=== PATIENT | male | born 1990 | race Caucasian/White ===

== ENCOUNTER 2017-08-29 01:21 | Emergency (ER) | payer SELFPAY ==
[~2017-08-29] VITALS: Ht 175.3 cm; Wt 65.0 kg
[~2017-08-29 01:21] MED LIST: METR-1 PO
[2017-08-29 01:23] VITALS: BP 145/103; PULSE 116; RESP 16; TEMP 98.7; O2SAT 96
[2017-08-29 01:55] VITALS: BP 124/83; PULSE 105; RESP 20; O2SAT 98
[2017-08-29] MEDS ORDERED: LISI-515 PO (01:55)
--- NOTE | 2017-08-29 02:09 | PD ---
HPI Chief Complaint: Alcohol/Drug Intoxication Time Seen by Provider: 01:54 Travel History International Travel<30 days: No Contact w/Intl Traveler<30days: No Traveled to known affect area: No History of Present Illness HPI 26-year-old white male IV drug abuser presents to emergency department requesting detox. The patient just left detox one week ago and had been in a treatment facility for the past 6 weeks. He has relapsed using IV heroin and smoking crack cocaine. Patient denies any suicidal or homicidal ideation. He denies any acute medical complaints. He is requesting detox. [facility] Past Medical History Narrative Medical Polysubstance abuse Hypertension: Yes Immunizations Current: Yes Tetanus Vaccination: Unknown Influenza Vaccination: No Past Surgical History Surgical History: No Previous Surgery Social History Alcohol Use: No Tobacco Use: Yes (ppd) Substance Use: Yes (marijuana, crack, heroin) Allergies-Medications (Allergen,Severity, Reaction): Coded Allergies: No Known Allergies (Verified Adverse Reaction, Unknown, 08/29/17) Reported Meds & Prescriptions Reported Meds & Active Scripts Active Reported Lisinopril 20 Mg Tab 20 Mg PO DAILY Review of Systems General / Constitutional: No: Fever Eyes: No: Visual changes HENT: No: Headaches Cardiovascular: No: Chest Pain or Discomfort Respiratory: No: Shortness of Breath Gastrointestinal: No: Abdominal Pain Genitourinary: No: Dysuria Musculoskeletal: No: Pain Skin: No Rash Neurologic: No: Weakness Psychiatric: No: Depression Endocrine: No: Polydipsia Hematologic/Lymphatic: No: Easy Bruising Physical Exam Narrative GENERAL: Well-nourished, well-developed patient. SKIN: Warm and dry. HEAD: Normocephalic and atraumatic. EYES: No scleral icterus. No injection or drainage. ENT: No nasal drainage noted. Mucous membranes pink. Airway patent. NECK: Supple, trachea midline. Moves head freely without obvious discomfort. CARDIOVASCULAR: Regular rate and rhythm without murmurs, gallops, or rubs. RESPIRATORY: Breath sounds equal bilaterally. No accessory muscle use. GASTROINTESTINAL: Abdomen soft, non-tender, nondistended. EXTREMITIES: No cyanosis or edema. BACK: Nontender without obvious deformity. No CVA tenderness. NEURO: Patient is alert and oriented. no sensorimotor deficits. Nonfocal. Normal speech. PSYCH: No delusions. No auditory or visual hallucinations. Data Data Last Documented VS Vital Signs Date Time Temp Pulse Resp B/P (MAP) Pulse Ox O2 Delivery O2 Flow Rate FiO2 08/29/17 01:55 105 20 124/83 (97) 98 Room Air 08/29/17 01:23 98.7 Orders Orders Ed Discharge Order (08/29/17 02:06) MDM Medical Decision Making Medical Screen Exam Complete: Yes Emergency Medical Condition: Yes Medical Record Reviewed: Yes Differential Diagnosis Differential diagnoses: Alcohol intoxication, substance abuse, electrolyte abnormality, malingering Narrative Course The patient is medically cleared for detox. Diagnosis Primary Impression: medical clearance for detox Patient Instructions: General Instructions Additional Instructions: Follow-up with [facility] for detox. Disposition: 01 DISCHARGE HOME Condition: Stable Suhas Javier Aug 29, 2017 02:09
== END 2017-08-29 03:27 ==
LOC: NEPD 01:21
DX: F10.129 Alcohol abuse with intoxication, unspecified (principal); F14.90 Cocaine use, unspecified, uncomplicated; F11.90 Opioid use, unspecified, uncomplicated; I10 Essential (primary) hypertension; F17.200 Nicotine dependence, unspecified, uncomplicated
CPT/HCPCS: 99283

== ENCOUNTER 2017-09-10 13:03 | Emergency (ER) | payer SELFPAY ==
[~2017-09-10] VITALS: Ht 175.3 cm; Wt 64.0 kg
[~2017-09-10 13:03] MED LIST changes: +LISI-515 PO; -METR-1 PO
[2017-09-10 13:04] VITALS: BP 143/76; PULSE 95; RESP 16; TEMP 97.7; O2SAT 99
[2017-09-10 14:14] LABS: AUTOMATED NEUTROPHIL # 9.1 TH/MM3 (1.8-7.7); BASOPHIL % 0.3 % (0.0-2.0); EOSINOPHIL % 0.3 % (0.0-4.0); HEMATOCRIT 49.4 % (39.0-51.0); HEMO FLAGS DIFF FINAL; LYMPH % 26.8 % (9.0-44.0); LYMPHOCYTE # 3.6 TH/MM3 (1.0-4.8); MEAN CELL VOLUME 90.3 FL (80.0-100.0); MEAN CORPUSCULAR HEMOGLOBIN 31.2 PG (27.0-34.0); MEAN CORPUSCULAR HGB CONC 34.5 % (32.0-36.0); MONO % 4.5 % (0.0-8.0); NEUT % 68.1 % (16.0-70.0); PLATELET COUNT 268 TH/MM3 (150-450); RED BLOOD COUNT 5.47 MIL/MM3 (4.50-5.90); RED CELL DISTRIBUTION WIDTH 12.4 % (11.6-17.2); WHITE BLOOD COUNT 13.4 TH/MM3 (4.0-11.0)
[2017-09-10 14:28] LABS: BLOOD, URINE NEG (NEG); COMMENT (UR) CULT NOT INDICATED; CULTURE IF INDICATED CULT NOT INDICATED; GLUCOSE,URINE NEG (NEG); KETONE, URINE NEG (NEG); MUCUS URINE MANY /lpf (OCC); NITRITE,URINE NEG (NEG); PH, URINE 7.5 (5.0-8.5); URINE COLOR YELLOW (YELLW/STRAW)
[2017-09-10 14:37] LABS: ANION GAP 6 MEQ/L (5-15); AST (GOT) 26 U/L (15-37); BICARBONATE 27.6 MEQ/L (21.0-32.0); BLOOD UREA NITROGEN 11 MG/DL (7-18); CHLORIDE 100 MEQ/L (98-107); GLOMERULAR FILTRATION RATE 111 ML/MIN (>89); POTASSIUM 4.4 MEQ/L (3.5-5.1); SODIUM (NA) 134 MEQ/L (136-145)
[2017-09-10 14:39] LABS: ALT (GPT) 90 U/L (12-78)
[2017-09-10 14:41] LABS: ALKALINE PHOSPHATASE 62 U/L (45-117); TOTAL BILIRUBIN ADULT 0.4 MG/DL (0.2-1.0)
--- NOTE | 2017-09-10 14:44 | PD ---
HPI Chief Complaint: Abdominal Pain Time Seen by Provider: 14:34 Travel History International Travel<30 days: No Contact w/Intl Traveler<30days: No Traveled to known affect area: No History of Present Illness HPI 26-year-old male complains of abdominal pain with nausea . Patient states that the pain started 2 days ago. Patient states the pain is cramping pain localized around the periumbilical area. Patient denies any pain radiation. Patient patient states that he has severe nausea but no vomiting. Patient states that the pain is worse with eating. Patient denies any fever chills. Patient denies any dysuria or frequency. PFSH Past Medical History Diminished Hearing: No Hypertension: Yes Immunizations Current: Yes Tetanus Vaccination: > 5 Years Influenza Vaccination: No Past Surgical History Surgical History: No Previous Surgery Social History Alcohol Use: No Tobacco Use: Yes (ppd) Substance Use: Yes (marijuana, crack, heroin) Allergies-Medications (Allergen,Severity, Reaction): Coded Allergies: No Known Allergies (Verified Adverse Reaction, Unknown, 09/10/17) Reported Meds & Prescriptions Reported Meds & Active Scripts Active Reported Lisinopril 20 Mg Tab 20 Mg PO DAILY Review of Systems General / Constitutional: No: Fever Eyes: No: Visual changes HENT: No: Headaches Cardiovascular: No: Chest Pain or Discomfort Respiratory: No: Shortness of Breath Gastrointestinal: Positive: Nausea, Abdominal Pain Genitourinary: No: Dysuria Musculoskeletal: No: Pain Skin: No Rash Neurologic: No: Weakness Psychiatric: No: Depression Endocrine: No: Polydipsia Hematologic/Lymphatic: No: Easy Bruising Physical Exam Narrative GENERAL: Well-nourished, well-developed patient. SKIN: Focused skin assessment warm/dry. HEAD: Normocephalic. EYES: No scleral icterus. No injection or drainage. NECK: Supple, trachea midline. No JVD or lymphadenopathy. CARDIOVASCULAR: Regular rate and rhythm without murmurs, gallops, or rubs. RESPIRATORY: Breath sounds equal bilaterally. No accessory muscle use. GASTROINTESTINAL: Abdomen soft, nondistended. Patient has mild tenderness on palpation around the periumbilical area. No rebound tenderness. No mass. MUSCULOSKELETAL: No cyanosis, or edema. BACK: Nontender without obvious deformity. No CVA tenderness. Neurologic exam normal. Data Data Last Documented VS Vital Signs Date Time Temp Pulse Resp B/P (MAP) Pulse Ox O2 Delivery O2 Flow Rate FiO2 09/10/17 13:04 97.7 95 16 143/76 (98) 99 Orders Orders Complete Blood Count With Diff (09/10/17 13:30) Comprehensive Metabolic Panel (09/10/17 13:30) Urinalysis - C+S If Indicated (09/10/17 13:30) Lipase (09/10/17 13:30) Ct Abd/Pel W Iv Contrast(Rout) (09/10/17 14:39) Labs Laboratory Tests Test 09/10/17 13:40 White Blood Count 13.4 TH/MM3 Red Blood Count 5.47 MIL/MM3 Hemoglobin 17.1 GM/DL Hematocrit 49.4 % Mean Corpuscular Volume 90.3 FL Mean Corpuscular Hemoglobin 31.2 PG Mean Corpuscular Hemoglobin Concent 34.5 % Red Cell Distribution Width 12.4 % Platelet Count 268 TH/MM3 Mean Platelet Volume 8.8 FL Neutrophils (%) (Auto) 68.1 % Lymphocytes (%) (Auto) 26.8 % Monocytes (%) (Auto) 4.5 % Eosinophils (%) (Auto) 0.3 % Basophils (%) (Auto) 0.3 % Neutrophils # (Auto) 9.1 TH/MM3 Lymphocytes # (Auto) 3.6 TH/MM3 Monocytes # (Auto) 0.6 TH/MM3 Eosinophils # (Auto) 0.0 TH/MM3 Basophils # (Auto) 0.0 TH/MM3 CBC Comment DIFF FINAL Differential Comment Urine Color YELLOW Urine Turbidity CLEAR Urine pH 7.5 Urine Specific [place] 1.032 Urine Protein TRACE mg/dL Urine Glucose (UA) NEG mg/dL Urine Ketones NEG mg/dL Urine Occult Blood NEG Urine Nitrite NEG Urine Bilirubin NEG Urine Urobilinogen LESS THAN 2.0 MG/DL Urine Leukocyte Esterase NEG Urine WBC 4 /hpf Urine Mucus MANY /lpf Microscopic Urinalysis Comment CULT NOT INDICATED Blood Urea Nitrogen 11 MG/DL Creatinine 0.83 MG/DL Random Glucose 85 MG/DL Total Protein 8.5 GM/DL Albumin 4.1 GM/DL Calcium Level 9.6 MG/DL Alkaline Phosphatase 62 U/L Aspartate Amino Transf (AST/SGOT) 26 U/L Alanine Aminotransferase (ALT/SGPT) 90 U/L Total Bilirubin 0.4 MG/DL Sodium Level 134 MEQ/L Potassium Level 4.4 MEQ/L Chloride Level 100 MEQ/L Carbon Dioxide Level 27.6 MEQ/L Anion Gap 6 MEQ/L Estimat Glomerular Filtration Rate 111 ML/MIN Lipase 168 U/L MDM Medical Decision Making Medical Screen Exam Complete: Yes Emergency Medical Condition: Yes Interpretation(s) 1445 PM. CBC WBC 13.4. Normal differential. CMP with sodium 134. ALT 90. UA is negative. Differential Diagnosis Differential diagnosis including gastritis, PUD, pancreatitis, cholecystitis, colitis, UTI, pyelonephritis, nephrolithiasis, appendicitis. Narrative Course 26-year-old male with periumbilical pain and nausea. Normal saline solution 1 L IV bolus. Zofran 4 mg IV. Pepcid 20 mg IV. Manjeet Dong MD Sep 10, 2017 14:44
[2017-09-10] MEDS ORDERED: ONDANSETRON HCL 4 MG/2 ML VIAL IV PUSH ONE (14:45)
[2017-09-10] MEDS ORDERED: SODIUM CHLOR 0.9% 1000 ML INJ 1,000 ML IV ONE (14:45)
[2017-09-10] MEDS ORDERED: SODIUM CHLORIDE 0.9% FLUSH 10 ML FLUSH IV FLUSH PRN (15:00)
[2017-09-10] MEDS ORDERED: FAMOTIDINE 20 MG/2 ML VIAL IV PUSH ONE (15:00)
[2017-09-10] MEDS ORDERED: IOHEXOL 350 MG/ML 10 ML VIAL (for RAD DIAG) IVCONTRAST ONE (16:55)
--- NOTE | 2017-09-10 17:04 | RADRPT ---
EXAM DATE/TIME: 09/10/2017 16:46 [facility] COMPARISON: No previous studies available for comparison. INDICATIONS : Hypogastric abdominal pain, nausea, vomiting, constipation and diarrhea. IV CONTRAST: 71 cc Omnipaque 350 (iohexol) IV ORAL CONTRAST: No oral contrast ingested. RADIATION DOSE: 6.43 CTDIvol (mGy) MEDICAL HISTORY : substance abuse SURGICAL HISTORY : None. ENCOUNTER: Initial ACUITY: 3 days PAIN SCALE: 3/10 LOCATION: hypogastric abdomen TECHNIQUE: Volumetric scanning of the abdomen and pelvis was performed. Using automated exposure control and ad justment of the mA and/or kV according to patient size, radiation dose was kept as low as reasonably achievable to obtain optimal diagnostic quality images. DICOM format image data is available electro nically for review and comparison. FINDINGS: LOWER LUNGS: The visualized lower lungs are clear. LIVER: Homogeneous density without lesion. There is no dilation of the biliary tree. No calcified gallston es. SPLEEN: Normal size without lesion. PANCREAS: Within normal limits. KIDNEYS: Normal in size and shape. There is no mass, stone or hydronephrosis. ADRENAL GLANDS: Within normal limits. VASCULAR: There is no aortic aneurysm. BOWEL/MESENTERY: The stomach, small bowel, and colon demonstrate no acute abnormality. There is no free intraperitone al air or fluid. ABDOMINAL WALL: Within normal limits. RETROPERITONEUM: There is no lymphadenopathy. BLADDER: No wall thickening or mass. REPRODUCTIVE: Within normal limits. INGUINAL: There is no lymphadenopathy or hernia. MUSCULOSKELETAL: Within normal limits for patient age. CONCLUSION: Normal CT of the abdomen and pelvis. Krishan Hayes MD on September 10, 2017 at 17:01 Board Certified Radiologist. This report was verified electronically.
[2017-09-10] MEDS ORDERED: ZOFR4TAB PO (18:30)
--- NOTE | 2017-09-10 18:31 | PD ---
Data Data Last Documented VS Vital Signs Date Time Temp Pulse Resp B/P (MAP) Pulse Ox O2 Delivery O2 Flow Rate FiO2 09/10/17 18:48 09/10/17 13:04 97.7 95 16 99 Orders Orders Complete Blood Count With Diff (09/10/17 13:30) Comprehensive Metabolic Panel (09/10/17 13:30) Urinalysis - C+S If Indicated (09/10/17 13:30) Lipase (09/10/17 13:30) Ct Abd/Pel W Iv Contrast(Rout) (09/10/17 14:39) Sodium Chlor 0.9% 1000 Ml Inj (Ns 1000 M (09/10/17 14:45) Ondansetron Inj (Zofran Inj) (09/10/17 14:45) Sodium Chloride 0.9% Flush (Ns Flush) (09/10/17 15:00) Famotidine Inj (Pepcid Inj) (09/10/17 15:00) Iohexol 350 Inj (Omnipaque 350 Inj) (09/10/17 16:55) Ed Discharge Order (09/10/17 18:38) Labs Laboratory Tests Test 09/10/17 13:40 White Blood Count 13.4 TH/MM3 Red Blood Count 5.47 MIL/MM3 Hemoglobin 17.1 GM/DL Hematocrit 49.4 % Mean Corpuscular Volume 90.3 FL Mean Corpuscular Hemoglobin 31.2 PG Mean Corpuscular Hemoglobin Concent 34.5 % Red Cell Distribution Width 12.4 % Platelet Count 268 TH/MM3 Mean Platelet Volume 8.8 FL Neutrophils (%) (Auto) 68.1 % Lymphocytes (%) (Auto) 26.8 % Monocytes (%) (Auto) 4.5 % Eosinophils (%) (Auto) 0.3 % Basophils (%) (Auto) 0.3 % Neutrophils # (Auto) 9.1 TH/MM3 Lymphocytes # (Auto) 3.6 TH/MM3 Monocytes # (Auto) 0.6 TH/MM3 Eosinophils # (Auto) 0.0 TH/MM3 Basophils # (Auto) 0.0 TH/MM3 CBC Comment DIFF FINAL Differential Comment Urine Color YELLOW Urine Turbidity CLEAR Urine pH 7.5 Urine Specific [place] 1.032 Urine Protein TRACE mg/dL Urine Glucose (UA) NEG mg/dL Urine Ketones NEG mg/dL Urine Occult Blood NEG Urine Nitrite NEG Urine Bilirubin NEG Urine Urobilinogen LESS THAN 2.0 MG/DL Urine Leukocyte Esterase NEG Urine WBC 4 /hpf Urine Mucus MANY /lpf Microscopic Urinalysis Comment CULT NOT INDICATED Blood Urea Nitrogen 11 MG/DL Creatinine 0.83 MG/DL Random Glucose 85 MG/DL Total Protein 8.5 GM/DL Albumin 4.1 GM/DL Calcium Level 9.6 MG/DL Alkaline Phosphatase 62 U/L Aspartate Amino Transf (AST/SGOT) 26 U/L Alanine Aminotransferase (ALT/SGPT) 90 U/L Total Bilirubin 0.4 MG/DL Sodium Level 134 MEQ/L Potassium Level 4.4 MEQ/L Chloride Level 100 MEQ/L Carbon Dioxide Level 27.6 MEQ/L Anion Gap 6 MEQ/L Estimat Glomerular Filtration Rate 111 ML/MIN Lipase 168 U/L MDM Supervised Visit with JOSSIE: No Narrative Course Patient care assumed from Dr. Dong at 1900. This 26-year-old male presents emergency department nausea vomiting and vague abdominal cramping. I was asked to follow-up this CAT scan disposition the patient properly. CAT scan showing no acute abnormality, my revisit the patient is feeling better after medicines admission by Dr. Dong, abdomen is benign. He appears quite well and in no distress appears healthy. She is currently living in a fpc house and thinks that there are rats running around which may be contributing to her symptoms. Discussed cleaning the apartment washing hands follow-up with primary care physician and return to ED criteria. He is stable for discharge. Diagnosis Primary Impression: Nausea & vomiting Med/Other Pt SpecificInfo: Prescription(s) given Scripts Ondansetron (Zofran) 4 Mg Tab 4 MG PO Q6HR Y for NAUSEA OR VOMITING, #20 TAB 0 Refills Prov: El Butterfield MD 09/10/17 Disposition: DISCHARGE HOME Condition: Stable El Butterfield MD Sep 10, 2017 18:31
== END 2017-09-10 18:49 | disposition home or self-care (01) ==
LOC: NEPD 13:03
DX: R11.2 Nausea with vomiting, unspecified (principal); R10.33 Periumbilical pain; I10 Essential (primary) hypertension; F17.200 Nicotine dependence, unspecified, uncomplicated; Z79.899 Other long term (current) drug therapy
CPT/HCPCS: 74177; 80053; 81001; 83690; 85025; 96374; 96375; 99285; J2405; J7030; Q9967

== ENCOUNTER 2017-12-28 18:34 | Emergency (ER) | payer SELFPAY ==
[~2017-12-28] VITALS: Ht 175.3 cm; Wt 65.0 kg
[~2017-12-28 18:34] MED LIST changes: +ZOFR4TAB PO
[2017-12-28 18:44] VITALS: BP 145/70; PULSE 90; RESP 15; TEMP 98; O2SAT 98
[2017-12-28] MEDS ORDERED: GABA300C5 PO (19:29)
[2017-12-28] MEDS ORDERED: BUPR8SUB SL (19:29)
[2017-12-28] MEDS ORDERED: CHLORO250 PO (19:29)
[2017-12-28] MEDS ORDERED: BUPR150XL PO (19:29)
[2017-12-28 19:32] VITALS: BP 120/82; PULSE 90; RESP 19; O2SAT 100
[2017-12-28] MEDS ORDERED: DEXAMETHASONE SOD PHOS 20 MG/5 ML VIAL IV PUSH ONE (20:15)
--- NOTE | 2017-12-28 20:28 | PD ---
HPI . Swollen throat Chief Complaint: ENT Complaint Time Seen by Provider: 19:40 Travel History International Travel<30 days: No Contact w/Intl Traveler<30days: No Traveled to known affect area: No History of Present Illness HPI This patient presents with the chief complaint of the acute onset of swelling in his throat. Started a couple hours prior to presentation. He states that he is having no problems swallowing and no problems breathing. He denies pain. He denies fever. Symptoms are mild with no modifying factors. PFSH Past Medical History Diminished Hearing: No Hypertension: Yes Immunizations Current: Yes Social History Alcohol Use: No Tobacco Use: Yes (ppd) Substance Use: Yes (marijuana, crack, heroin) Allergies-Medications (Allergen,Severity, Reaction): Coded Allergies: No Known Allergies (Verified Adverse Reaction, Unknown, 12/28/17) Reported Meds & Prescriptions Reported Meds & Active Scripts Active Zofran (Ondansetron HCl) 4 Mg Tab 4 Mg PO Q6HR PRN Reported Chlorothiazide 250 Mg Tab 250 Mg PO BID Buprenorphine (Buprenorphine HCl) 8 Mg Subl 8 Mg SL QID Gabapentin 300 Mg Cap 300 Mg PO QID Wellbutrin Xl 24 HR (Bupropion HCl) 150 Mg Tab 150 Mg PO DAILY Lisinopril 20 Mg Tab 20 Mg PO DAILY Review of Systems Except as stated in HPI: all other systems reviewed are Neg General / Constitutional: No: Fever, Chills HENT: Positive: Other (swelling of the oropharynx), No: Sore Throat Respiratory: No: Shortness of Breath Physical Exam Narrative GENERAL: Awake and alert and in no acute distress. SKIN: Warm and dry. HEAD: Normocephalic/atraumatic. EYES: Pupils are equal. Extraocular movements are intact. ENT: He appears to have some chronic tonsillar hypertrophy. No exudate. No erythema. NECK: Normal range of motion. No cervical lymphadenopathy. No palpable masses in the anterior neck. CARDIOVASCULAR: Regular rate and rhythm. RESPIRATORY: Nonlabored respirations. MUSCULOSKELETAL: Atraumatic. NEUROLOGICAL: Nonfocal. PSYCHIATRIC: Appropriate mood and affect. Data Data Last Documented VS Vital Signs Date Time Temp Pulse Resp B/P (MAP) Pulse Ox O2 Delivery O2 Flow Rate FiO2 12/28/17 19:32 90 19 120/82 (95) 100 Room Air 12/28/17 18:[address] Soft Tiss Neck W Iv Cont (12/28/17 20:09) ^ Saline Lock (12/28/17 20:09) Complete Blood Count With Diff (12/28/17 20:09) Basic Metabolic Panel (Bmp) (12/28/17 20:09) Dexamethasone Inj (Decadron Inj) (12/28/17 20:15) Iohexol 350 Inj (Omnipaque 350 Inj) (12/28/17 21:31) Labs Laboratory Tests Test 12/28/17 20:05 White Blood Count 10.5 TH/MM3 Red Blood Count 5.06 MIL/MM3 Hemoglobin 15.6 GM/DL Hematocrit 45.2 % Mean Corpuscular Volume 89.4 FL Mean Corpuscular Hemoglobin 30.8 PG Mean Corpuscular Hemoglobin Concent 34.4 % Red Cell Distribution Width 12.9 % Platelet Count 197 TH/MM3 Mean Platelet Volume 9.4 FL Neutrophils (%) (Auto) 55.9 % Lymphocytes (%) (Auto) 33.5 % Monocytes (%) (Auto) 8.6 % Eosinophils (%) (Auto) 1.4 % Basophils (%) (Auto) 0.6 % Neutrophils # (Auto) 5.9 TH/MM3 Lymphocytes # (Auto) 3.5 TH/MM3 Monocytes # (Auto) 0.9 TH/MM3 Eosinophils # (Auto) 0.2 TH/MM3 Basophils # (Auto) 0.1 TH/MM3 CBC Comment DIFF FINAL Differential Comment Blood Urea Nitrogen 14 MG/DL Creatinine 0.85 MG/DL Random Glucose 90 MG/DL Calcium Level 8.8 MG/DL Sodium Level 133 MEQ/L Potassium Level 4.2 MEQ/L Chloride Level 98 MEQ/L Carbon Dioxide Level 27.8 MEQ/L Anion Gap 7 MEQ/L Estimat Glomerular Filtration Rate 107 ML/MIN [facility] Medical Decision Making Medical Screen Exam Complete: Yes Emergency Medical Condition: Yes Medical Record Reviewed: Yes (medical history is significant for hypertension, chronic tonsillitis and polysubstance abuse) Differential Diagnosis Differential diagnosis includes but is not limited to peritonsillar abscess, retropharyngeal abscess, allergic reaction, lymphadenopathy Narrative Course This patient presents with the sensation of his throat swelling. He has a history of chronic tonsillitis. His exam is compatible with chronic tonsillar hypertrophy. I have ordered a CT of the soft tissues of the neck to evaluate for a more ominous cause for his pharyngeal swelling. Interestingly, the patient presented to the nurses station requesting food. CBC & BMP Diagram 12/28/17 20:05 Calcium Level 8.[address] 12/28/172008 Signed Impressions: Service Date/Time: , December 28, 2017 21:25 - CONCLUSION: 1. No acute finding on neck CT. Suhas Waldron MD Patient does not have any compromise of his airway and is stable for discharge to home. Diagnosis Primary Impression: Throat swelling Patient Instructions: General Instructions Disposition: 01 DISCHARGE HOME Condition: Stable Delia Samano MD Dec 28, 2017 20:28
[2017-12-28 20:49] LABS: AUTOMATED NEUTROPHIL # 5.9 TH/MM3 (1.8-7.7); BASOPHIL # 0.1 TH/MM3 (0-0.2); BASOPHIL % 0.6 % (0.0-2.0); EOSINOPHIL # 0.2 TH/MM3 (0-0.4); EOSINOPHIL % 1.4 % (0.0-4.0); HEMATOCRIT 45.2 % (39.0-51.0); HEMOGLOBIN 15.6 GM/DL (13.0-17.0); LYMPH % 33.5 % (9.0-44.0); LYMPHOCYTE # 3.5 TH/MM3 (1.0-4.8); MEAN CELL VOLUME 89.4 FL (80.0-100.0); MEAN CORPUSCULAR HEMOGLOBIN 30.8 PG (27.0-34.0); MEAN CORPUSCULAR HGB CONC 34.4 % (32.0-36.0); MEAN PLATELET VOLUME 9.4 FL (7.0-11.0); MONO % 8.6 % (0.0-8.0); MONOCYTE # 0.9 TH/MM3 (0-0.9); NEUT % 55.9 % (16.0-70.0); PLATELET COUNT 197 TH/MM3 (150-450); RED BLOOD COUNT 5.06 MIL/MM3 (4.50-5.90); RED CELL DISTRIBUTION WIDTH 12.9 % (11.6-17.2); WHITE BLOOD COUNT 10.5 TH/MM3 (4.0-11.0)
[2017-12-28 21:08] LABS: BICARBONATE 27.8 MEQ/L (21.0-32.0); CALCIUM 8.8 MG/DL (8.5-10.1); CREATININE 0.85 MG/DL (0.60-1.30)
[2017-12-28] MEDS ORDERED: IOHEXOL 350 MG/ML 10 ML VIAL (for RAD DIAG) IVCONTRAST ONE (21:31)
--- NOTE | 2017-12-28 22:03 | RADRPT ---
EXAM DATE/TIME: 12/28/2017 21:25 [facility] COMPARISON: No previous studies available for comparison. INDICATIONS : Trouble swallowing, evaluate for abscess IV CONTRAST: 60 cc Omnipaque 350 (iohexol) IV RADIATION DOSE: 16.61 CTDIvol (mGy) MEDICAL HISTORY : Hypertension. SURGICAL HISTORY : None. ENCOUNTER: Initial ACUITY: 1 day PAIN SCALE: 4/10 LOCATION: neck TECHNIQUE: Volumetric scanning of the neck was performed. Using automated exposure control and adjustment of th e mA and/or kV according to patient size, radiation dose was kept as low as reasonably achievable to obtain optimal diagnostic quality images. DICOM format image data is available electronically for r eview and comparison. FINDINGS: NASOPHARYNX: The nasopharyngeal airway has a normal configuration. No mucosal thickening or mass is seen. OROPHARYNX: The intrinsic muscles of the tongue are symmetric. The tonsillar pillars are intact. The prevertebr al soft tissues are not thickened. LARYNX: The supraglottic, glottic, and infraglottic structures are intact. PARAPHARYNGEAL: The parapharyngeal space is intact. SALIVARY GLANDS: The parotid and submandibular glands are intact. LYMPH NODES: No enlarged or necrotic-appearing nodes. THYROID: Homogeneous enhancement without evidence of nodule. BONES: Unremarkable. CONCLUSION: 1. No acute finding on neck CT. Suhas Waldron MD on December 28, 2017 at 21:56 Board Certified Radiologist. This report was verified electronically.
== END 2017-12-28 22:21 | disposition home or self-care (01) ==
LOC: NEPE 18:34
DX: J35.1 Hypertrophy of tonsils (principal); F17.200 Nicotine dependence, unspecified, uncomplicated; I10 Essential (primary) hypertension
CPT/HCPCS: 70491; 80048; 85025; 96374; 99284; J1100; Q9967

== ENCOUNTER 2018-01-20 15:16 | Inpatient (IN) | payer SELFPAY ==
[~2018-01-20] VITALS: Ht 175.3 cm; Wt 60.7 kg
[~2018-01-20 15:16] MED LIST changes: +BUPR150XL PO; +BUPR8SUB SL; +CHLORO250 PO; +GABA300C5 PO
[2018-01-20] MEDS ORDERED: SODIUM CHLOR 0.9% 1000 ML INJ 1,000 ML IV SCH (15:26)
--- NOTE | 2018-01-20 15:29 | PD ---
HPI Chief Complaint: Dehydration Time Seen by Provider: 15:19 Travel History International Travel<30 days: No Contact w/Intl Traveler<30days: No Traveled to known affect area: No History of Present Illness HPI This is a 41-year-old male who presents via EMS for evaluation. He feels that he may be dehydrated. He reports that he has been using a lot of drugs over the past 2 days and he has had little sleep and very little to eat or drink. He reports that he has had 3 glasses of fluids over the last 3 days and only a slice of pizza to eat. This morning he reports that he used crack cocaine, nidia. He has received 500 mL normal saline via EMS and he also drink Powerade. He reports anxiety, dry mouth. He has no other complaints at this time. [facility] Past Medical History Diminished Hearing: No Hypertension: Yes Immunizations Current: Yes Social History Alcohol Use: No Tobacco Use: Yes (ppd) Substance Use: Yes (marijuana, crack, heroin) Allergies-Medications (Allergen,Severity, Reaction): Coded Allergies: No Known Allergies (Verified Adverse Reaction, Unknown, 12/28/17) Reported Meds & Prescriptions Reported Meds & Active Scripts Active Zofran (Ondansetron HCl) 4 Mg Tab 4 Mg PO Q6HR PRN Reported Acyclovir 200 Mg Cap 200 Mg PO 5 TIMES A DAY Allergy Relief (Loratadine) 10 Mg Tab 10 Mg PO DAILY Chlorothiazide 250 Mg Tab 250 Mg PO BID Buprenorphine (Buprenorphine HCl) 8 Mg Subl 8 Mg SL QID Gabapentin 300 Mg Cap 300 Mg PO QID Wellbutrin Xl 24 HR (Bupropion HCl) 150 Mg Tab 150 Mg PO DAILY Lisinopril 20 Mg Tab 20 Mg PO DAILY Review of Systems Except as stated in HPI: all other systems reviewed are Neg Physical Exam Narrative GENERAL: This is well-developed well-nourished male who is anxious SKIN: Warm and dry. HEAD: Atraumatic. Normocephalic. EYES: Pupils equal and round. No scleral icterus. No injection or drainage. ENT: No nasal bleeding or discharge. Mucous membranes pink and moist. NECK: Trachea midline. No JVD. CARDIOVASCULAR: Regular rhythm, tachycardic. No murmur appreciated. RESPIRATORY: No accessory muscle use. Clear to auscultation. Breath sounds equal bilaterally. GASTROINTESTINAL: Abdomen soft, non-tender, nondistended. Hepatic and splenic margins not palpable. MUSCULOSKELETAL: No obvious deformities. No clubbing. No cyanosis. No edema. NEUROLOGICAL: Awake and alert. No obvious cranial nerve deficits. Motor grossly within normal limits. Normal speech. PSYCHIATRIC: Anxious with somewhat rapid speech. Data Data Last Documented VS Vital Signs Date Time Temp Pulse Resp B/P (MAP) Pulse Ox O2 Delivery O2 Flow Rate FiO2 01/20/18 15:54 120 18 01/20/18 15:45 98.6 102/56 (71) 97 Orders Orders Basic Metabolic Panel (Bmp) (01/20/18 15:26) Complete Blood Count With Diff (01/20/18 15:26) Iv Access Insert/Monitor (01/20/18 15:26) Sodium Chlor 0.9% 1000 Ml Inj (Ns 1000 M (01/20/18 15:26) Electrocardiogram (01/20/18 15:26) Creatine Kinase (Cpk) (01/20/18 15:26) Drug Screen, Random Urine (01/20/18 15:26) Magnesium (Mg) (01/20/18 15:26) CKMB (01/20/18 15:40) CKMB% (01/20/18 15:40) Lactic Acid Sepsis Protocol (01/20/18 16:27) Urinalysis - C+S If Indicated (01/20/18 16:27) Blood Culture (01/20/18 16:27) Labs Laboratory Tests Test 01/20/18 15:40 White Blood Count 19.8 TH/MM3 Red Blood Count 5.03 MIL/MM3 Hemoglobin 15.3 GM/DL Hematocrit 44.1 % Mean Corpuscular Volume 87.5 FL Mean Corpuscular Hemoglobin 30.4 PG Mean Corpuscular Hemoglobin Concent 34.8 % Red Cell Distribution Width 12.8 % Platelet Count 304 TH/MM3 Mean Platelet Volume 8.4 FL Neutrophils (%) (Auto) 72.6 % Lymphocytes (%) (Auto) 19.3 % Monocytes (%) (Auto) 7.7 % Eosinophils (%) (Auto) 0.0 % Basophils (%) (Auto) 0.4 % Neutrophils # (Auto) 14.3 TH/MM3 Lymphocytes # (Auto) 3.8 TH/MM3 Monocytes # (Auto) 1.5 TH/MM3 Eosinophils # (Auto) 0.0 TH/MM3 Basophils # (Auto) 0.1 TH/MM3 CBC Comment DIFF FINAL Differential Comment Blood Urea Nitrogen 44 MG/DL Creatinine 4.35 MG/DL Random Glucose 97 MG/DL Calcium Level 9.0 MG/DL Magnesium Level 2.4 MG/DL Sodium Level 138 MEQ/L Potassium Level 4.1 MEQ/L Chloride Level 104 MEQ/L Carbon Dioxide Level 21.4 MEQ/L Anion Gap 13 MEQ/L Estimat Glomerular Filtration Rate 16 ML/MIN Total Creatine Kinase 500 U/L Creatine Kinase MB 4.6 NG/ML Creatine Kinase MB % 0.9 % MDM Medical Decision Making Medical Screen Exam Complete: Yes Emergency Medical Condition: Yes Medical Record Reviewed: Yes Differential Diagnosis Sympathomimetic drug abuse versus dehydration versus versus electrolyte abnormality versus acute kidney injury versus rhabdomyolysis Narrative Course The patient was placed on ECG monitoring pulse oximetry. A 12-lead EKG was obtained revealing sinus tachycardia with a rate of 122, lab work, urine drug screen have been ordered. The patient will be given IV fluids as well as oral hydration. The patient's lab work is been reviewed. GFR of 16 which is significantly reduced from his most recent GFR of 107 on December 28. His WBC count is 19.8 and in the setting of IV drug abuse blood cultures and lactic acid have been ordered. The patient will be admitted for further treatment of his acute renal failure. Diagnosis Primary Impression: Acute renal failure Additional Impressions: Leukocytosis IV drug user Admitting Information Admitting Physician Requests: Admit Felipe Sauceda Jan 20, 2018 15:28
[2018-01-20 15:45] VITALS: BP 102/56; PULSE 120; RESP 18; TEMP 98.6; O2SAT 97
[2018-01-20 15:47] LABS: AUTOMATED NEUTROPHIL # 14.3 TH/MM3 (1.8-7.7); BASOPHIL # 0.1 TH/MM3 (0-0.2); BASOPHIL % 0.4 % (0.0-2.0); HEMATOCRIT 44.1 % (39.0-51.0); HEMOGLOBIN 15.3 GM/DL (13.0-17.0); LYMPH % 19.3 % (9.0-44.0); LYMPHOCYTE # 3.8 TH/MM3 (1.0-4.8); MEAN CELL VOLUME 87.5 FL (80.0-100.0); MEAN CORPUSCULAR HEMOGLOBIN 30.4 PG (27.0-34.0); MEAN CORPUSCULAR HGB CONC 34.8 % (32.0-36.0); MEAN PLATELET VOLUME 8.4 FL (7.0-11.0); MONO % 7.7 % (0.0-8.0); MONOCYTE # 1.5 TH/MM3 (0-0.9); NEUT % 72.6 % (16.0-70.0); PLATELET COUNT 304 TH/MM3 (150-450); RED BLOOD COUNT 5.03 MIL/MM3 (4.50-5.90); RED CELL DISTRIBUTION WIDTH 12.8 % (11.6-17.2); WHITE BLOOD COUNT 19.8 TH/MM3 (4.0-11.0)
[2018-01-20] MEDS ORDERED: ACYC200C66 PO (15:54)
[2018-01-20] MEDS ORDERED: LORA-650 PO (15:54)
[2018-01-20 16:23] LABS: BICARBONATE 21.4 MEQ/L (21.0-32.0); CREATININE 4.35 MG/DL (0.60-1.30); MAGNESIUM 2.4 MG/DL (1.5-2.5)
[2018-01-20] MEDS ORDERED: NALOXONE HCL 0.4 MG/ML AMP IV PUSH PRN (17:00)
[2018-01-20] MEDS ORDERED: SODIUM CHLORIDE 0.9% FLUSH 10 ML FLUSH IV FLUSH PRN (17:00)
[2018-01-20] MEDS ORDERED: ONDANSETRON HCL 4 MG/2 ML VIAL IVP PRN (17:00)
[2018-01-20] MEDS: SODIUM CHLOR 0.9% 1000 ML INJ 1,000 ML IV SCH ×3 (17:25→23:00)
[2018-01-20 17:42] VITALS: BP 117/56; PULSE 108; RESP 20; O2SAT 97
[2018-01-20 17:55] VITALS: BP 96/52; PULSE 107; RESP 18; TEMP 97.7; O2SAT 98
[2018-01-20] MEDS ORDERED: LORazepam 2 MG/ML VIAL IV PUSH ONE (18:00)
--- NOTE | 2018-01-20 18:06 | HHI.HP ---
HPI Service [facility] Hospitalists Primary Care Physician No Primary Care Physician Admission Diagnosis Acute renal failure, leukocytosis, IV drug use Diagnoses: Chief Complaint: Feel he may be dehydrated Travel History International Travel<30 Days: No Contact w/Intl Traveler <30 Da: No Traveled to Known Affected Are: No History of Present Illness This is a 41-year-old male who presented to [facility] via EMS for evaluation. The patient states that he felt he might have been dehydrated. The patient states that he has been using a lot of drugs over the past 2 days including Cayla and heroine and he has had a little sleep very little to eat or drink. The patient states that he had 3 glasses of fluids over the last 3 days and only slight of a pizza to eat. This morning he reports that he used crack cocaine, mostly. The patient reports feeling very anxious, having dry mouth and feeling cramping in the hands and feet. Otherwise denies any chest pain, shortness of breath, fevers, chills, diarrhea, nausea, vomiting. Review of Systems As per HPI, other systems reviewed by me and negative. Past Family Social History Past Medical History 1. Hypertension 2. Bipolar disorder. 3. IV drug abuse. 4. Smoking addiction Past Surgical History Denies any major surgeries. Reported Medications Reported Meds & Active Scripts Active Zofran (Ondansetron HCl) 4 Mg Tab 4 Mg PO Q6HR PRN Reported Acyclovir 200 Mg Cap 200 Mg PO 5 TIMES A DAY Allergy Relief (Loratadine) 10 Mg Tab 10 Mg PO DAILY Chlorothiazide 250 Mg Tab 250 Mg PO BID Buprenorphine (Buprenorphine HCl) 8 Mg Subl 8 Mg SL QID Gabapentin 300 Mg Cap 300 Mg PO QID Wellbutrin Xl 24 HR (Bupropion HCl) 150 Mg Tab 150 Mg PO DAILY Lisinopril 20 Mg Tab 20 Mg PO DAILY Allergies: Coded Allergies: No Known Allergies (Verified Adverse Reaction, Unknown, 12/28/17) Active Ordered Medications Current Medications Medications (Trade) Dose Ordered Sig/Brittney Route Start Time Stop Time Status Last Admin Sodium Chloride 1,000 ml @ 125 mls/hr Q8H IV 01/20/18 16:58 01/20/18 17:25 (NS Flush) 2 ml UNSCH PRN IV FLUSH 01/20/18 17:00 (NS Flush) 2 ml BID IV FLUSH 01/20/18 21:00 (Tylenol) 650 mg Q4H PRN PO 01/20/18 17:00 (Zofran Inj) 4 mg Q6H PRN IVP 01/20/18 17:00 (Narcan Inj) 0.4 mg UNSCH PRN IV PUSH 01/20/18 17:00 (Ativan Inj) 1 mg ONCE ONCE IV PUSH 01/20/18 17:45 01/20/18 17:46 UNV Family History Patient states mother has hypertension. Patient states his father had cancer. Social History The patient states he smokes 1 pack per day. The patient has been abusing several drugs including heroin, mostly crack cocaine. Physical Exam Vital Signs Vital Signs Date Time Temp Pulse Resp B/P (MAP) Pulse Ox O2 Delivery O2 Flow Rate FiO2 01/20/18 17:42 108 20 117/56 (76) 97 Room Air 01/20/18 15:54 120 18 01/20/18 15:45 98.6 120 18 102/56 (71) 97 Physical Exam GENERAL: This is a well-nourished, well-developed patient, moderate distress very anxious and unrestful. SKIN: No rashes, ecchymoses or lesions. Cool and dry. HEAD: Atraumatic. Normocephalic. No temporal or scalp tenderness. EYES: Pupils equal round and reactive. Extraocular motions intact. No scleral icterus. No injection or drainage. ENT: Nose without bleeding, purulent drainage or septal hematoma. Throat without erythema, tonsillar hypertrophy or exudate. Uvula midline. Airway patent. Very dry mucous membranes. NECK: Trachea midline. No JVD or lymphadenopathy. Supple, nontender, no meningeal signs. CARDIOVASCULAR: Regular rate and rhythm without murmurs, gallops, or rubs. RESPIRATORY: Clear to auscultation. Breath sounds equal bilaterally. No wheezes , rales, or rhonchi. GASTROINTESTINAL: Abdomen soft, non-tender, nondistended. No hepato-splenomegaly , or palpable masses. No guarding. MUSCULOSKELETAL: Extremities without clubbing, cyanosis, or edema. No joint tenderness, effusion, or edema noted. No calf tenderness. Negative Homans sign bilaterally. NEUROLOGICAL: Awake and alert. Cranial nerves II through XII intact. Motor and sensory grossly within normal limits. Five out of 5 muscle strength in all muscle groups. Normal speech. Laboratory Laboratory Tests Test 01/20/18 15:40 01/20/18 17:00 White Blood Count 19.8 Red Blood Count 5.03 Hemoglobin 15.3 Hematocrit 44.1 Mean Corpuscular Volume 87.5 Mean Corpuscular Hemoglobin 30.4 Mean Corpuscular Hemoglobin Concent 34.8 Red Cell Distribution Width 12.8 Platelet Count 304 Mean Platelet Volume 8.4 Neutrophils (%) (Auto) 72.6 Lymphocytes (%) (Auto) 19.3 Monocytes (%) (Auto) 7.7 Eosinophils (%) (Auto) 0.0 Basophils (%) (Auto) 0.4 Neutrophils # (Auto) 14.3 Lymphocytes # (Auto) 3.8 Monocytes # (Auto) 1.5 Eosinophils # (Auto) 0.0 Basophils # (Auto) 0.1 CBC Comment DIFF FINAL Differential Comment Blood Urea Nitrogen 44 Creatinine 4.35 Random Glucose 97 Calcium Level 9.0 Magnesium Level 2.4 Sodium Level 138 Potassium Level 4.1 Chloride Level 104 Carbon Dioxide Level 21.4 Anion Gap 13 Estimat Glomerular Filtration Rate 16 Total Creatine Kinase 500 Creatine Kinase MB 4.6 Creatine Kinase MB % 0.9 Lactic Acid Level 2.0 Date/Time Source Procedure Growth Status 01/20/18 16:05 Blood Peripheral Aerobic Blood Culture Pending Received 01/20/18 16:05 Blood Peripheral Anaerobic Blood Culture Pending Received Result Diagram: 01/20/18 1540 01/20/18 1540 Caprini VTE Risk Assessment Caprini VTE Risk Assessment: No/Low Risk (score <= 1) Caprini Risk Assessment Model Point Value = 1 Point Value = 2 Point Value = 3 Point Value = 5 Age 41-60 Minor surgery BMI > 25 kg/m2 Swollen legs Varicose veins or History of unexplained or recurrent spontaneous Oral contraceptives or hormone replacement Sepsis (< 1 month) Serious lung disease, including pneumonia (< 1 month) Abnormal pulmonary function Acute myocardial infarction Congestive heart failure (< 1 month) History of inflammatory bowel disease Medical patient at bed rest Age 61-74 Arthroscopic surgery Major open surgery (> 45 min) Laparoscopic surgery (> 45 min) Malignancy Confined to bed (> 72 hours) Immobilizing plaster cast Central venous access Age >= 75 History of VTE Family history of VTE Factor V Leiden Prothrombin [id number] Lupus anticoagulant Anticardiolipin antibodies Elevated serum homocysteine Heparin-induced thrombocytopenia Other congenital or acquired thrombophilia Stroke (< 1 month) Elective arthroplasty Hip, pelvis, or leg fracture Acute spinal cord injury (< 1 month) Prophylaxis Regimen Total Risk Factor Score Risk Level Prophylaxis Regimen 0-1 Low Early ambulation 2 Moderate Order ONE of the following: *Sequential Compression Device (SCD) *Heparin 5000 units SQ BID 3-4 Higher Order ONE of the following medications: *Heparin 5000 units SQ TID *Enoxaparin/Lovenox 40 mg SQ daily (WT < 150 kg, CrCl > 30 mL/min) *Enoxaparin/Lovenox 30 mg SQ daily (WT < 150 kg, CrCl > 10-29 mL/min) *Enoxaparin/Lovenox 30 mg SQ BID (WT < 150 kg, CrCl > 30 mL/min) AND/OR *Sequential Compression Device (SCD) 5 or more Highest Order ONE of the following medications: *Heparin 5000 units SQ TID (Preferred with Epidurals) *Enoxaparin/Lovenox 40 mg SQ daily (WT < 150 kg, CrCl > 30 mL/min) *Enoxaparin/Lovenox 30 mg SQ daily (WT < 150 kg, CrCl > 10-29 mL/min) *Enoxaparin/Lovenox 30 mg SQ BID (WT < 150 kg, CrCl > 30 mL/min) AND *Sequential Compression Device (SCD) Assessment and Plan Problem List: (1) Acute renal failure ICD Code: N17.9 - Acute kidney failure, unspecified Status: Acute (2) Leukocytosis ICD Code: D72.829 - Elevated white blood cell count, unspecified Status: Acute (3) Heroin withdrawal ICD Code: F11.23 - Opioid dependence with withdrawal (4) Smoking addiction ICD Code: F17.200 - Nicotine dependence, unspecified, uncomplicated (5) Rhabdomyolysis ICD Code: M62.82 - Rhabdomyolysis Assessment and Plan This is a 27-year-old male with history of hypertension, IV drug abuse who has been using IV drugs recently. Presents with elevated creatinine on admission of 4.35 and mild elevated total CK of 500. Patient has acute kidney injury likely secondary to severe dehydration and drug use as well as mild rhabdomyolysis. Admit the patient to the general floor Monitor on telemetry IV fluids in the form of normal saline at 125 mL's per hour. Monitor BUN/creatinine, history I's and O's, avoid nephrotoxins. Monitor CPK for rhabdomyolysis. Check kidney ultrasound Check urine sodium, urine for eosinophils, microalbumin creatinine ratio Consult nephrology Patient has leukocytosis. Check urinalysis and chest x-ray. Monitor CBC with differential. Follow-up blood cultures. Patient meets this criteria with tachycardia and leukocytosis. Follow-up chest x-ray and urinalysis. SCDs for DVT prophylaxis Code Status Full code Discussed Condition With Patient, RN, ED physician. Physician Certification 2 Midnight Certification Type: Admission for Inpatient Services Order for Inpatient Services The services are ordered in accordance with Medicare regulations or non- Medicare payer requirements, as applicable. In the case of services not specified as inpatient-only, they are appropriately provided as inpatient services in accordance with the 2-midnight benchmark. Estimated LOS (days): 2 days is the estimated time the patient will need to remain in the hospital, assuming treatment plan goals are met and no additional complications. Post-Hospital Plan: Home Héctor Womack MD Jan 20, 2018 18:06
--- NOTE | 2018-01-20 18:39 | RADRPT ---
EXAM DATE/TIME: 01/20/2018 18:15 [facility] COMPARISON: No previous studies available for comparison. INDICATIONS : Increased BUN and Creatinine. MEDICAL HISTORY : Hypertension. Substance abuse. SURGICAL HISTORY : None. ENCOUNTER: Initial ACUITY: 1 day PAIN SCORE: 0/10 LOCATION: Bilateral flank MEASUREMENTS: RIGHT KIDNEY: 9.3 x 4.9 x 4.9 cm LEFT KIDNEY: 10.9 x 4.4 x 6.2 cm FINDINGS: RIGHT KIDNEY: Renal cortex is normal in thickness and echotexture. No hydronephrosis, stone, or mass. LEFT KIDNEY: Renal cortex is normal in thickness and echotexture. No hydronephrosis, stone, or mass. BLADDER: Within normal limits given the degree of distension. CONCLUSION: Ultrasound appearance of the kidneys and urinary bladder within normal limits. Krishan Hayes MD on January 20, 2018 at 18:37 Board Certified Radiologist. This report was verified electronically.
--- NOTE | 2018-01-20 19:06 | RADRPT ---
EXAM DATE/TIME: 01/20/2018 18:33 [facility] COMPARISON: No previous studies available for comparison. INDICATIONS : Leukocytosis. MEDICAL HISTORY : Hypertension. Smoker. SURGICAL HISTORY : None. ENCOUNTER: Subsequent ACUITY: 2 days PAIN SCORE: 0/10 LOCATION: Bilateral chest FINDINGS: A single view of the chest demonstrates the lungs to be symmetrically aerated without evidence of mas s, infiltrate or effusion. The cardiomediastinal contours are unremarkable. Osseous structures are intact. CONCLUSION: No evidence of acute cardiopulmonary disease. Krishan Hayes MD on January 20, 2018 at 19:04 Board Certified Radiologist. This report was verified electronically.
[2018-01-20 20:00] VITALS: BP 120/56; PULSE 104; RESP 20; TEMP 97.4; O2SAT 97
[2018-01-20] MEDS: SODIUM CHLORIDE 0.9% FLUSH 10 ML FLUSH IV FLUSH SCH (21:00)
[2018-01-21] VITALS: BP 110/53; PULSE 117; RESP 20; TEMP 97.4; O2SAT 94
[2018-01-21 04:00] VITALS: BP 113/56; PULSE 92; PULSE 93; RESP 20; TEMP 98.2; O2SAT 96
[2018-01-21] MEDS: SODIUM CHLOR 0.9% 1000 ML INJ 1,000 ML IV SCH (04:56)
[2018-01-21 06:51] LABS: AUTOMATED NEUTROPHIL # 8.7 TH/MM3 (1.8-7.7); BASOPHIL % 0.3 % (0.0-2.0); EOSINOPHIL # 0.2 TH/MM3 (0-0.4); EOSINOPHIL % 1.2 % (0.0-4.0); HEMATOCRIT 36.3 % (39.0-51.0); HEMOGLOBIN 12.5 GM/DL (13.0-17.0); LYMPH % 28.5 % (9.0-44.0); LYMPHOCYTE # 4.2 TH/MM3 (1.0-4.8); MEAN CELL VOLUME 87.9 FL (80.0-100.0); MEAN CORPUSCULAR HEMOGLOBIN 30.3 PG (27.0-34.0); MEAN CORPUSCULAR HGB CONC 34.5 % (32.0-36.0); MONOCYTE # 1.5 TH/MM3 (0-0.9); PLATELET COUNT 229 TH/MM3 (150-450); RED BLOOD COUNT 4.13 MIL/MM3 (4.50-5.90); RED CELL DISTRIBUTION WIDTH 12.7 % (11.6-17.2); WHITE BLOOD COUNT 14.6 TH/MM3 (4.0-11.0)
[2018-01-21 07:12] LABS: ALBUMIN 3.4 GM/DL (3.4-5.0); ALKALINE PHOSPHATASE 41 U/L (45-117); ALT (GPT) 121 U/L (12-78); AST (GOT) 99 U/L (15-37); BICARBONATE 22.6 MEQ/L (21.0-32.0); BLOOD UREA NITROGEN 38 MG/DL (7-18); CALCIUM 8.2 MG/DL (8.5-10.1); CHLORIDE 108 MEQ/L (98-107); CREATININE 2.09 MG/DL (0.60-1.30); GLOMERULAR FILTRATION RATE 38 ML/MIN (>89); GLUCOSE,RANDOM 91 MG/DL (74-106); SODIUM (NA) 139 MEQ/L (136-145); TOTAL BILIRUBIN ADULT 0.6 MG/DL (0.2-1.0); TOTAL PROTEIN 6.7 GM/DL (6.4-8.2)
[2018-01-21 07:40] LABS: AMORPHOUS SEDIMENT, URINE RARE; BILIRUBIN, URINE NEG (NEG); BLOOD, URINE TRACE (NEG); GLUCOSE,URINE NEG (NEG); KETONE, URINE NEG (NEG); MUCUS URINE FEW /lpf (OCC); NITRITE,URINE NEG (NEG); URIC ACID CRYSTALS, URINE MOD /hpf; URINE COLOR YELLOW (YELLW/STRAW); URINE LEUKOCYTE ESTERASE LARGE (NEG)
[2018-01-21 08:00] VITALS: BP 96/69; PULSE 93; RESP 20; TEMP 98.5; O2SAT 98
[2018-01-21] MEDS ORDERED: LORazepam 1 MG TAB PO ONE (08:45)
[2018-01-21] MEDS: SODIUM CHLORIDE 0.9% FLUSH 10 ML FLUSH IV FLUSH SCH ×2 (08:54→20:45)
[2018-01-21] MEDS: BUPRENORPHINE HCL 8 MG SUBLINGUAL TAB SL SCH ×4 (11:54→20:44)
[2018-01-21 12:00] VITALS: BP 122/58; PULSE 68; RESP 20; TEMP 98.8; O2SAT 100
--- NOTE | 2018-01-21 12:12 | HHI.PR ---
Subjective Remarks Fidgety, anxious says he needs his suboxane as he is with withdrawals. Some nausea no vomiting. No much appetite did not eat breakfast. No fever or chills. Feels tired. No cough fever ro chills. Objective Vitals Vital Signs Date Time Temp Pulse Resp B/P (MAP) Pulse Ox O2 Delivery O2 Flow Rate FiO2 01/21/18 09:00 Room Air 01/21/18 08:00 98.5 93 20 96/69 (78) 98 01/21/18 04:00 92 01/21/18 04:00 98.2 93 20 113/56 (75) 96 01/21/18 00:00 97.4 117 20 110/53 (72) 94 01/20/18 20:00 97.4 104 20 120/56 (77) 97 01/20/18 18:00 Room Air 01/20/18 17:55 97.7 107 18 96/52 (67) 98 01/20/18 17:54 01/20/18 17:42 108 20 117/56 (76) 97 Room Air 01/20/18 15:54 120 18 01/20/18 15:45 98.6 120 18 102/56 (71) 97 I/O 01/20/18 01/20/18 01/20/18 01/21/18 01/21/18 01/21/18 07:00 15:00 23:00 07:00 15:00 23:00 # Voids 1 Result Diagram: 01/21/18 0455 01/21/18 0455 Imaging Last Impressions Renal Ultrasound 01/20/18 0000 Signed Impressions: Service Date/Time: Saturday, January 20, 2018 18:15 - CONCLUSION: Ultrasound appearance of the kidneys and urinary bladder within normal limits. Krishan Hayes MD Chest X-Ray 01/20/18 0000 Signed Impressions: Service Date/Time: Saturday, January 20, 2018 18:33 - CONCLUSION: No evidence of acute cardiopulmonary disease. Krishan Hayes MD Objective Remarks GENERAL: This is a well-nourished, well-developed patient, moderate distress very anxious and unrestful. CARDIOVASCULAR: Regular rate and rhythm without murmurs, gallops, or rubs. RESPIRATORY: Clear to auscultation. Breath sounds equal bilaterally. No wheezes , rales, or rhonchi. GASTROINTESTINAL: Abdomen soft, non-tender, nondistended. No hepato-splenomegaly , or palpable masses. No guarding. MUSCULOSKELETAL: Extremities without clubbing, cyanosis, or edema. No joint tenderness, effusion, or edema noted. No calf tenderness. Negative Homans sign bilaterally. NEUROLOGICAL: Awake and alert. Cranial nerves II through XII intact. Motor and sensory grossly within normal limits. Five out of 5 muscle strength in all muscle groups. Normal speech. A/P Problem List: (1) Acute renal failure ICD Code: N17.9 - Acute kidney failure, unspecified Status: Acute (2) Leukocytosis ICD Code: D72.829 - Elevated white blood cell count, unspecified Status: Acute (3) Heroin withdrawal ICD Code: F11.23 - Opioid dependence with withdrawal (4) Smoking addiction ICD Code: F17.200 - Nicotine dependence, unspecified, uncomplicated (5) Rhabdomyolysis ICD Code: M62.82 - Rhabdomyolysis Assessment and Plan This is a 27-year-old male with history of hypertension, IV drug abuse who has been using IV drugs recently. Presents with elevated creatinine on admission of 4.35 and mild elevated total CK of 500. Patient has acute kidney injury likely secondary to severe dehydration and drug use as well as mild rhabdomyolysis. YASMIN 2/2 severe dehydration, decreased PO and illicit drug use Rhabdomyolysis Polysubstance use (cocaine, ecstasy, nidia per patient). Taking Suboxone for withdrawals. Restart Suboxone as patient with withdrawal symptoms. Counselled. Monitor on telemetry IV fluids in the form of normal saline at 125 mL's per hour. Monitor BUN/creatinine, history I's and O's, avoid nephrotoxins. Monitor CPK for rhabdomyolysis. Kidney ultrasound reviewed normal kidneys Check urine sodium, urine for eosinophils, microalbumin creatinine ratio Consult nephrology, appreciate recommendation Patient has leukocytosis. Check urinalysis and chest x-ray. Monitor CBC with differential. Follow-up blood cultures. Patient meets this criteria with tachycardia and leukocytosis. Follow-up chest x-ray and urinalysis. DVT prophylaxis: SCDs Discussed with the patient, nurse Delmis Amaya MD Jan 21, 2018 12:12
[2018-01-21 16:00] VITALS: BP 116/56; PULSE 79; RESP 20; TEMP 98.5; O2SAT 98
--- NOTE | 2018-01-21 16:15 | EKG ---
Date Performed: 01/20/2018 Time Performed: 15:28:57 PTAGE: 27 years EKG: SINUS TACHYCARDIA WITH SHORT NV INTERVAL VOLTAGE CRITERIA FOR LVH NONSPECIFIC T-WAVE ABNORM ALITY ABNORMAL ECG NO PREVIOUS TRACING DOCTOR: Carla Berg Interpretating Date/Time 01/21/2018 16:13:12
[2018-01-21 20:00] VITALS: BP 128/66; PULSE 89; RESP 18; TEMP 98.4; O2SAT 98
[2018-01-22] VITALS (7 sets, daily range): BP systolic 106–123; BP diastolic 54–67; PULSE 64–79; RESP 18–20; TEMP 97.7–98.2; O2SAT 99–100
[2018-01-22] MEDS: SODIUM CHLOR 0.9% 1000 ML INJ 1,000 ML IV SCH ×3 (01:35→17:54)
--- NOTE | 2018-01-22 08:14 | HHI.PR ---
Subjective Remarks In bed appears in nad at this time. Less agitated. No n/v/d/c. Not eating much. No fever or chills. Objective Vitals Vital Signs Date Time Temp Pulse Resp B/P (MAP) Pulse Ox O2 Delivery O2 Flow Rate FiO2 01/22/18 07:00 Room Air 01/22/18 04:00 97.9 66 18 120/60 (80) 99 01/22/18 00:00 97.7 67 18 106/54 (71) 99 01/21/18 20:00 98.4 89 18 128/66 (86) 98 01/21/18 16:00 98.5 79 20 116/56 (76) 98 01/21/18 15:55 Room Air 01/21/18 12:26 Room Air 01/21/18 12:00 98.8 68 20 122/58 (79) 100 01/21/18 09:00 Room Air I/O 01/21/18 01/21/18 01/21/18 01/22/18 01/22/18 01/22/18 07:00 15:00 23:00 07:00 15:00 23:00 Intake Total 720 ml 1359 ml Balance 720 ml 1359 ml Intake Oral 720 ml 360 ml IV Total 999 ml # Voids 1 3 # Bowel Movements 0 Result Diagram: 01/21/18 0455 01/21/18 0455 Imaging Last Impressions Renal Ultrasound 01/20/18 0000 Signed Impressions: Service Date/Time: Saturday, January 20, 2018 18:15 - CONCLUSION: Ultrasound appearance of the kidneys and urinary bladder within normal limits. Krishan Hayes MD Chest X-Ray 01/20/18 0000 Signed Impressions: Service Date/Time: Saturday, January 20, 2018 18:33 - CONCLUSION: No evidence of acute cardiopulmonary disease. Krishan Hayes MD Objective Remarks GENERAL: This is a well-nourished, well-developed patient, moderate distress very anxious and unrestful. CARDIOVASCULAR: Regular rate and rhythm without murmurs, gallops, or rubs. RESPIRATORY: Clear to auscultation. Breath sounds equal bilaterally. No wheezes , rales, or rhonchi. GASTROINTESTINAL: Abdomen soft, non-tender, nondistended. No hepato-splenomegaly , or palpable masses. No guarding. MUSCULOSKELETAL: Extremities without clubbing, cyanosis, or edema. No joint tenderness, effusion, or edema noted. No calf tenderness. Negative Homans sign bilaterally. NEUROLOGICAL: Awake and alert. Cranial nerves II through XII intact. Motor and sensory grossly within normal limits. Five out of 5 muscle strength in all muscle groups. Normal speech. A/P Problem List: (1) Acute renal failure ICD Code: N17.9 - Acute kidney failure, unspecified Status: Acute (2) Leukocytosis ICD Code: D72.829 - Elevated white blood cell count, unspecified Status: Acute (3) Heroin withdrawal ICD Code: F11.23 - Opioid dependence with withdrawal (4) Smoking addiction ICD Code: F17.200 - Nicotine dependence, unspecified, uncomplicated (5) Rhabdomyolysis ICD Code: M62.82 - Rhabdomyolysis Assessment and Plan This is a 27-year-old male with history of hypertension, IV drug abuse who has been using IV drugs recently. Presents with elevated creatinine on admission of 4.35 and mild elevated total CK of 500. Patient has acute kidney injury likely secondary to severe dehydration and drug use as well as mild rhabdomyolysis. YASMIN 2/2 severe dehydration, decreased PO and illicit drug use Rhabdomyolysis Polysubstance use (urine tox positive for cocaine, opiates, amphetamines). Taking Suboxone for withdrawals. Restart Suboxone as patient with withdrawal symptoms. Counselled. 1/4 bottles with positive GPC likely contaminant however patient is IVDU, poss endocarditis. Consult ID. Monitor on telemetry IV fluids in the form of normal saline at 125 mL's per hour. Monitor BUN/creatinine, history I's and O's, avoid nephrotoxins. Monitor CPK for rhabdomyolysis. Kidney ultrasound reviewed normal kidneys Check urine sodium, urine for eosinophils, microalbumin creatinine ratio Consult nephrology, appreciate recommendation Patient has leukocytosis. Check urinalysis and chest x-ray. Monitor CBC with differential. Follow-up blood cultures. Patient meets this criteria with tachycardia and leukocytosis. Follow-up chest x-ray and urinalysis. Restart home meds as appropriate hold HCTZ, lisinopril as patient with YASMIN DVT prophylaxis: SCDs Discussed with the patient, nurse Delmis Amaya MD Jan 22, 2018 08:14
[2018-01-22] MEDS: SODIUM CHLORIDE 0.9% FLUSH 10 ML FLUSH IV FLUSH SCH ×2 (08:41→20:51)
[2018-01-22] MEDS: BUPRENORPHINE HCL 8 MG SUBLINGUAL TAB SL SCH ×4 (09:05→20:51)
[2018-01-22] MEDS ORDERED: hydrALAZINE HCL 10 MG TAB PO PRN (09:45)
[2018-01-22] MEDS: ACETAMINOPHEN 325 MG TAB PO PRN (10:20)
[2018-01-22] MEDS: buPROPion HCL 150 MG SUSTAINED RELEASE TAB PO SCH (11:40)
--- NOTE | 2018-01-22 17:58 | PD.ID.CON ---
History of Present Illness Service ID Consult Requested By Dr Amaya Reason for Consult bacteremia Primary Care Physician No Primary Care Physician Diagnoses: History of Present Illness 27 yo male with active IVDU presented dehidrated, with YASMIN after injectiving IV drugs Denies fever, chills nightslweats no fever on presentation Blood clx done, one bottle is positive with coag neg staph and alpha hemolitic strec (same bottle) Repeat blood clx negative @ 1 day Review of Systems Except as stated in HPI: all other systems reviewed are Neg Past Family Social History Allergies: Coded Allergies: No Known Allergies (Verified Adverse Reaction, Unknown, 12/28/17) Past Medical History 1. Hypertension 2. Bipolar disorder. 3. IV drug abuse. 4. Smoking addiction Past Surgical History Denies any major surgeries. Active Ordered Medications Medications where reviewed in EMR Antibiotics Include: none Family History Patient states mother has hypertension. Patient states his father had cancer. Social History The patient states he smokes 1 pack per day. The patient has been abusing several drugs including heroin, mostly crack cocaine. Physical Exam Vital Signs Vital Signs Date Time Temp Pulse Resp B/P (MAP) Pulse Ox O2 Delivery O2 Flow Rate FiO2 01/22/18 08:00 97.9 73 20 114/58 (76) 99 01/22/18 07:00 Room Air 01/22/18 04:00 97.9 66 18 120/60 (80) 99 01/22/18 00:00 97.7 67 18 106/54 (71) 99 01/21/18 20:00 98.4 89 18 128/66 (86) 98 Physical Exam CONSTITUTIONAL/GENERAL: This is an adequately nourished patient, in no apparent distress. TUBES/LINES/DRAINS: SKIN: No jaundice, rashes, or lesions. . Skin temperature appropriate. Not diaphoretic. no embolic phenomena HEAD: Atraumatic. Normocephalic. EYES: Pupils equal and round and reactive. Extraocular motions intact. No scleral icterus. No injection or drainage. Fundi not examined. ENT: Hearing grossly normal. Nose without bleeding or purulent drainage. Throat without visible erythema, exudates, masses, or lesions. NECK: Trachea midline. Supple, nontender. No palpable thyroid enlargement or nodularity. CARDIOVASCULAR: Regular rate and rhythm 1-2/6 systolic murmur on RUSB, gallops, or rubs. No JVD. Peripheral pulses symmetric. RESPIRATORY/CHEST: Symmetric, unlabored respirations. Clear to auscultation. Breath sounds equal bilaterally. No wheezes, rales, or rhonchi. GASTROINTESTINAL: Abdomen soft, non-tender, nondistended. No hepato-splenomegaly , or palpable masses. No guarding. Bowel sounds present. GENITOURINARY: Without palpable bladder distension. MUSCULOSKELETAL: Extremities without clubbing, cyanosis, or edema. No joint tenderness or effusion noted. No calf tenderness. No mottling or clubbing. LYMPHATICS: No palpable cervical or supraclavicular adenopathy. NEUROLOGICAL: Awake and alert. Motor and sensory grossly within normal limits. Follows commands. Cognitively sharp. Moves all extremities. PSYCHIATRIC: No obvious anxiety/depression. no apparent hallucinations or other psychotic thought process. Laboratory Date/Time Source Procedure Growth Status 01/21/18 19:41 Blood Peripheral Aerobic Blood Culture - Preliminary NO GROWTH IN 1 DAY Resulted 01/21/18 19:41 Blood Peripheral Anaerobic Blood Culture - Preliminary NO GROWTH IN 1 DAY Resulted 01/21/18 06:40 Urine Clean Catch Urine Culture - Preliminary NO GROWTH IN 24 HOURS. Resulted Result Diagram: 01/21/18 0455 01/21/18 0455 Imaging Last Impressions Renal Ultrasound 01/20/18 0000 Signed Impressions: Service Date/Time: Saturday, January 20, 2018 18:15 - CONCLUSION: Ultrasound appearance of the kidneys and urinary bladder within normal limits. Krishan Hayes MD Chest X-Ray 01/20/18 0000 Signed Impressions: Service Date/Time: Saturday, January 20, 2018 18:33 - CONCLUSION: No evidence of acute cardiopulmonary disease. Krishan Hayes MD Assessment and Plan Assessment and Plan Low grade bacteremia with different gram Positive org's - likley contaminants Heart murmur IVDU 2 D echo no abx unless sustained/. recurrent bacteremia with same organism Nora Elias MD Jan 22, 2018 17:58
[2018-01-23] VITALS: BP 118/55; PULSE 71; RESP 18; TEMP 98.1; O2SAT 98
[2018-01-23 00:36] VITALS: PULSE 73
[2018-01-23] MEDS: SODIUM CHLOR 0.9% 1000 ML INJ 1,000 ML IV SCH ×2 (03:23→13:46)
[2018-01-23 03:47] VITALS: BP 107/53; PULSE 52; RESP 16; TEMP 98.1; O2SAT 99
[2018-01-23 07:41] LABS: AUTOMATED NEUTROPHIL # 2.2 TH/MM3 (1.8-7.7); BASOPHIL % 0.3 % (0.0-2.0); EOSINOPHIL # 0.3 TH/MM3 (0-0.4); EOSINOPHIL % 3.8 % (0.0-4.0); HEMOGLOBIN 12.8 GM/DL (13.0-17.0); LYMPH % 53.7 % (9.0-44.0); LYMPHOCYTE # 3.6 TH/MM3 (1.0-4.8); MEAN CELL VOLUME 88.3 FL (80.0-100.0); MEAN CORPUSCULAR HEMOGLOBIN 30.5 PG (27.0-34.0); MEAN CORPUSCULAR HGB CONC 34.6 % (32.0-36.0); MEAN PLATELET VOLUME 8.9 FL (7.0-11.0); MONO % 9.7 % (0.0-8.0); MONOCYTE # 0.6 TH/MM3 (0-0.9); NEUT % 32.5 % (16.0-70.0); PLATELET COUNT 213 TH/MM3 (150-450); RED BLOOD COUNT 4.19 MIL/MM3 (4.50-5.90); RED CELL DISTRIBUTION WIDTH 12.7 % (11.6-17.2); WHITE BLOOD COUNT 6.6 TH/MM3 (4.0-11.0)
[2018-01-23 08:00] VITALS: BP 116/63; PULSE 66; RESP 20; TEMP 97.4; O2SAT 98
[2018-01-23 08:14] LABS: BICARBONATE 27.2 MEQ/L (21.0-32.0); CALCIUM 8.4 MG/DL (8.5-10.1); CREATININE 0.8 MG/DL (0.60-1.30)
[2018-01-23] MEDS ORDERED: LORATADINE 10 MG TAB PO SCH (09:00)
[2018-01-23] MEDS: SODIUM CHLORIDE 0.9% FLUSH 10 ML FLUSH IV FLUSH SCH (09:15)
[2018-01-23] MEDS: BUPRENORPHINE HCL 8 MG SUBLINGUAL TAB SL SCH ×3 (09:15→17:37)
[2018-01-23] MEDS: buPROPion HCL 150 MG SUSTAINED RELEASE TAB PO SCH (09:15)
[2018-01-23 12:00] VITALS: BP 120/70; PULSE 73; RESP 20; TEMP 97.3; O2SAT 98
[2018-01-23] MEDS: ACETAMINOPHEN 325 MG TAB PO PRN (13:44)
--- NOTE | 2018-01-23 15:35 | HHI.PR ---
Subjective Remarks The patient went for 2D echo. Was seen late in the afternoon. Mother at bedside. Says he feels good no chest pain or shortness of breath no nausea vomiting no diarrhea or constipation. Eating well. Kidneys back at baseline. Objective Vitals Vital Signs Date Time Temp Pulse Resp B/P (MAP) Pulse Ox O2 Delivery O2 Flow Rate FiO2 01/23/18 07:36 Room Air 01/23/18 03:47 Room Air 01/23/18 03:47 98.1 52 16 107/53 (71) 99 01/23/18 00:36 73 01/23/18 00:00 98.1 71 18 118/55 (76) 98 01/22/18 20:56 64 01/22/18 20:00 Room Air 01/22/18 20:00 98.1 79 20 123/67 (85) 99 01/22/18 16:00 98.2 76 20 119/59 (79) 100 I/O 01/22/18 01/22/18 01/22/18 01/23/18 01/23/18 01/23/18 07:00 15:00 23:00 07:00 15:00 23:00 Intake Total 1359 ml 1720 ml 2600 ml Balance 1359 ml 1720 ml 2600 ml Intake Oral 360 ml 720 ml 1600 ml IV Total 999 ml 1000 ml 1000 ml # Voids 3 4 8 # Bowel Movements 0 0 0 Result Diagram: 01/23/18 0709 01/23/18 0709 Imaging Last Impressions Renal Ultrasound 01/20/18 0000 Signed Impressions: Service Date/Time: Saturday, January 20, 2018 18:15 - CONCLUSION: Ultrasound appearance of the kidneys and urinary bladder within normal limits. Krishan Hayes MD Chest X-Ray 01/20/18 0000 Signed Impressions: Service Date/Time: Saturday, January 20, 2018 18:33 - CONCLUSION: No evidence of acute cardiopulmonary disease. Krishan Hayes MD Objective Remarks GENERAL: This is a well-nourished, well-developed patient, moderate distress very anxious and unrestful. CARDIOVASCULAR: Regular rate and rhythm without murmurs, gallops, or rubs. RESPIRATORY: Clear to auscultation. Breath sounds equal bilaterally. No wheezes , rales, or rhonchi. GASTROINTESTINAL: Abdomen soft, non-tender, nondistended. No hepato-splenomegaly , or palpable masses. No guarding. MUSCULOSKELETAL: Extremities without clubbing, cyanosis, or edema. No joint tenderness, effusion, or edema noted. No calf tenderness. Negative Homans sign bilaterally. NEUROLOGICAL: Awake and alert. Cranial nerves II through XII intact. Motor and sensory grossly within normal limits. Five out of 5 muscle strength in all muscle groups. Normal speech. A/P Problem List: (1) Acute renal failure ICD Code: N17.9 - Acute kidney failure, unspecified Status: Acute (2) Leukocytosis ICD Code: D72.829 - Elevated white blood cell count, unspecified Status: Acute (3) Heroin withdrawal ICD Code: F11.23 - Opioid dependence with withdrawal (4) Smoking addiction ICD Code: F17.200 - Nicotine dependence, unspecified, uncomplicated (5) Rhabdomyolysis ICD Code: M62.82 - Rhabdomyolysis Assessment and Plan This is a 27-year-old male with history of hypertension, IV drug abuse who has been using IV drugs recently. Presents with elevated creatinine on admission of 4.35 and mild elevated total CK of 500. Patient has acute kidney injury likely secondary to severe dehydration and drug use as well as mild rhabdomyolysis. YASMIN 2/2 severe dehydration, decreased PO and illicit drug use Rhabdomyolysis Polysubstance use (urine tox positive for cocaine, opiates, amphetamines). Taking Suboxone for withdrawals. Restart Suboxone as patient with withdrawal symptoms. Counselled. 1/4 bottles with positive GPC likely contaminant however patient is IVDU. Consult ID. Do 2D ECHO as patient with poss heart murmur. Spoke with Dr Wiggins ID Cleared patient for DC. Monitor on telemetry IV fluids in the form of normal saline at 125 mL's per hour. Monitor BUN/creatinine, history I's and O's, avoid nephrotoxins. Monitor CPK for rhabdomyolysis. Kidney ultrasound reviewed normal kidneys Check urine sodium, urine for eosinophils, microalbumin creatinine ratio Consult nephrology, appreciate recommendation Patient has leukocytosis. Check urinalysis and chest x-ray. Monitor CBC with differential. Follow-up blood cultures. Patient meets this criteria with tachycardia and leukocytosis. Follow-up chest x-ray and urinalysis. Restart home meds as appropriate hold HCTZ, lisinopril as patient with YASMIN DVT prophylaxis: SCDs Discussed with the patient, nurse, family at bedside. Kidney function is back to normal. patient with good UOP , good PO intake and hydration. DC today. 2D ECHO reviewed with mild MV regurg and mild MV thickening. Can dC patient home. To resume meds at home. Delmis Amaya MD Jan 23, 2018 15:35
--- NOTE | 2018-01-23 15:37 | HHI.DS ---
Discharge Summary Admission Date Jan 20, 2018 at 17:00 Discharge Date: Jan 23, 2018 Admitting Diagnosis Acute renal failure, leukocytosis, IV drug use (1) Acute renal failure ICD Code: N17.9 - Acute kidney failure, unspecified Status: Acute (2) Leukocytosis ICD Code: D72.829 - Elevated white blood cell count, unspecified Status: Acute (3) Heroin withdrawal ICD Code: F11.23 - Opioid dependence with withdrawal (4) Smoking addiction ICD Code: F17.200 - Nicotine dependence, unspecified, uncomplicated (5) Rhabdomyolysis ICD Code: M62.82 - Rhabdomyolysis Procedures none Brief History - From Admission This is a 41-year-old male who presented to [facility] via EMS for evaluation. The patient states that he felt he might have been dehydrated. The patient states that he has been using a lot of drugs over the past 2 days including Cayla and heroine and he has had a little sleep very little to eat or drink. The patient states that he had 3 glasses of fluids over the last 3 days and only slight of a pizza to eat. This morning he reports that he used crack cocaine, mostly. The patient reports feeling very anxious, having dry mouth and feeling cramping in the hands and feet. Otherwise denies any chest pain, shortness of breath, fevers, chills, diarrhea, nausea, vomiting. CBC/BMP: 01/23/18 0709 01/23/18 0709 Significant Findings Laboratory Tests Test 01/20/18 15:40 01/20/18 17:00 01/21/18 04:55 01/21/18 06:40 White Blood Count 19.8 TH/MM3 (4.0-11.0) 14.6 TH/MM3 (4.0-11.0) Neutrophils (%) (Auto) 72.6 % (16.0-70.0) Neutrophils # (Auto) 14.3 TH/MM3 (1.8-7.7) 8.7 TH/MM3 (1.8-7.7) Monocytes # (Auto) 1.5 TH/MM3 (0-0.9) 1.5 TH/MM3 (0-0.9) Blood Urea Nitrogen 44 MG/DL (7-18) 38 MG/DL (7-18) Creatinine 4.35 MG/DL (0.60-1.30) 2.09 MG/DL (0.60-1.30) Estimat Glomerular Filtration Rate 16 ML/MIN (>89) 38 ML/MIN (>89) Total Creatine Kinase 500 U/L (39-308) Creatine Kinase MB 4.6 NG/ML (0.5-3.6) Red Blood Count 4.13 MIL/MM3 (4.50-5.90) Hemoglobin 12.5 GM/DL (13.0-17.0) Hematocrit 36.3 % (39.0-51.0) Monocytes (%) (Auto) 10.0 % (0.0-8.0) Calcium Level 8.2 MG/DL (8.5-10.1) Alkaline Phosphatase 41 U/L (45-117) Aspartate Amino Transf (AST/SGOT) 99 U/L (15-37) Alanine Aminotransferase (ALT/SGPT) 121 U/L (12-78) Chloride Level 108 MEQ/L (98-107) Urine Turbidity HAZY (CLEAR) Urine Occult Blood TRACE (NEG) Urine Leukocyte Esterase LARGE (NEG) Urine WBC 23 /hpf (0-5) Urine Uric Acid Crystals MOD /hpf (NONE) Urine Mucus FEW /lpf (OCC) Urine Opiates Screen POS (NEG) Urine Amphetamines Screen POS (NEG) Urine Cocaine Screen POS (NEG) Test 01/23/18 07:09 Red Blood Count 4.19 MIL/MM3 (4.50-5.90) Hemoglobin 12.8 GM/DL (13.0-17.0) Hematocrit 37.0 % (39.0-51.0) Lymphocytes (%) (Auto) 53.7 % (9.0-44.0) Monocytes (%) (Auto) 9.7 % (0.0-8.0) Calcium Level 8.4 MG/DL (8.5-10.1) Chloride Level 108 MEQ/L (98-107) Imaging Last Impressions Renal Ultrasound 01/20/18 0000 Signed Impressions: Service Date/Time: Saturday, January 20, 2018 18:15 - CONCLUSION: Ultrasound appearance of the kidneys and urinary bladder within normal limits. Krishan Hayes MD Chest X-Ray 01/20/18 0000 Signed Impressions: Service Date/Time: Saturday, January 20, 2018 18:33 - CONCLUSION: No evidence of acute cardiopulmonary disease. Krishan Hayes MD PE at Discharge GENERAL: This is a well-nourished, well-developed patient, moderate distress very anxious and unrestful. CARDIOVASCULAR: Regular rate and rhythm without murmurs, gallops, or rubs. RESPIRATORY: Clear to auscultation. Breath sounds equal bilaterally. No wheezes , rales, or rhonchi. GASTROINTESTINAL: Abdomen soft, non-tender, nondistended. No hepato-splenomegaly , or palpable masses. No guarding. MUSCULOSKELETAL: Extremities without clubbing, cyanosis, or edema. No joint tenderness, effusion, or edema noted. No calf tenderness. Negative Homans sign bilaterally. NEUROLOGICAL: Awake and alert. Cranial nerves II through XII intact. Motor and sensory grossly within normal limits. Five out of 5 muscle strength in all muscle groups. Normal speech. Hospital Course This is a 27-year-old male with history of hypertension, IV drug abuse who has been using IV drugs recently. Presents with elevated creatinine on admission of 4.35 and mild elevated total CK of 500. Patient has acute kidney injury likely secondary to severe dehydration and drug use as well as mild rhabdomyolysis. YASMIN 2/2 severe dehydration, decreased PO and illicit drug use. Resolved. Rhabdomyolysis Polysubstance use (urine tox positive for cocaine, opiates, amphetamines). Taking Suboxone for withdrawals. Restart Suboxone as patient with withdrawal symptoms. Counselled extensively. 1/4 bottles with positive GPC likely contaminant however patient is IVDU. Consult ID. . Spoke with Dr Wiggins ID Cleared patient for DC. 2D ECHO reviewed with EF of 55% milf MV regurg and mild MV thikening of leafs. Monitor on telemetry IV fluids in the form of normal saline at 125 mL's per hour. Encouraged PO intalke. Kidney fucntion back to normal Monitor BUN/creatinine, history I's and O's, avoid nephrotoxins. Monitor CPK for rhabdomyolysis. Kidney ultrasound reviewed normal kidneys Check urine sodium, urine for eosinophils, microalbumin creatinine ratio Consult nephrology, appreciate recommendation Patient has leukocytosis. Check urinalysis and chest x-ray. Monitor CBC with differential. Follow-up blood cultures. Patient meets this criteria with tachycardia and leukocytosis. Follow-up chest x-ray and urinalysis. Restart home meds as appropriate hold HCTZ, lisinopril as patient with YASMIN DVT prophylaxis: SCDs Discussed with the patient, nurse, family at bedside. Kidney function is back to normal. patient with good UOP , good PO intake and hydration. DC today. 2D ECHO reviewed with normal EF of 55% mild MV regurgitation and mild MV thickening. Can DC patient home. To resume meds at home. DC home in stable condition to follow up as OP with PCP and consultants. Pt Condition on Discharge: Stable Discharge Disposition: Discharge Home Discharge Time: > 30 minutes Discharge Instructions DIET: Follow Instructions for: Heart Healthy Diet Activities you can perform: Regular-No Restrictions Follow up Referrals: PCP Follow-up - 2-3 Days PCP Follow-up Continued Medications: Acyclovir (Acyclovir) 200 Mg Cap 200 MG PO 5 TIMES A DAY for Mgmt Viral Infection, CAP 0 Refills Buprenorphine (Buprenorphine) 8 Mg Subl 8 MG SL QID, TAB.SL Bupropion HCl ER 24 HR (Wellbutrin Xl 24 HR) 150 Mg Tab 150 MG PO DAILY for Control Depression, TAB 0 Refills Chlorothiazide (Chlorothiazide) 250 Mg Tab 250 MG PO BID for Blood Pressure Management, #60 TAB 0 Refills Gabapentin (Gabapentin) 300 Mg Cap 300 MG PO QID, #90 CAP 0 Refills Lisinopril (Lisinopril) 20 Mg Tab 20 MG PO DAILY, #30 TAB 0 Refills Loratadine (Allergy Relief) 10 Mg Tab 10 MG PO DAILY, TAB Ondansetron (Zofran) 4 Mg Tab 4 MG PO Q6HR PRN for NAUSEA OR VOMITING, #20 TAB 0 Refills Delmis Amaya MD Jan 23, 2018 15:37
[2018-01-23 16:00] VITALS: BP 102/52; PULSE 59; RESP 20; TEMP 98.1; O2SAT 98
--- NOTE | 2018-01-23 18:31 | ECHRPT ---
Indication: Vegetations CONCLUSIONS The left ventricular systolic function is normal with an estimated ejection fraction of 55%. Mild thickening of the mitral valve leaflets. Mild mitral valve regurgitation. There is mild tricuspid valve regurgitation. The estimated pulmonary arterial pressure is 32 mmHg. Mild pulmonary valve regurgitation. BP: 107 / 53 HR: 66 Rhythm: Sinus MEASUREMENTS (Male / Female) Normal Values Technical Quality:Fair DOPPLER TR Peak Velocity 232.0 cm/s TR Peak Gradient 21.5 mmHg Right Atrial Pressure 10.0 mmHg Pulmonary Artery Systolic Pressu 31.5 mmHg Right Ventricular Systolic Press 31.5 mmHg FINDINGS LEFT VENTRICLE The left ventricular systolic function is normal with an estimated ejection fraction of 55%. MITRAL VALVE Mild thickening of the mitral valve leaflets. Mild mitral valve regurgitation. AORTIC VALVE Trileaflet aortic valve. No aortic valve regurgitation. TRICUSPID VALVE Structurally normal tricuspid valve. There is mild tricuspid valve regurgitation. The estimated pulmonary arterial pressure is 31.5 mmHg. PULMONARY VALVE Mild pulmonary valve regurgitation. Maude Contreras MD, FACC (Electronically Signed) Final Date:23 January 2018 18:31
== END 2018-01-23 20:31 | disposition home or self-care (01) | DRG 683 ==
LOC: NEPD 15:16 → NEDA 17:00 → N04B 17:55
PROVIDERS: ADMIT Hospitalist; ATTEND Hospitalist
DX: N17.9 Acute kidney failure, unspecified (principal); M62.82 Rhabdomyolysis; R78.81 Bacteremia; F11.23 Opioid dependence with withdrawal; D72.829 Elevated white blood cell count, unspecified; F17.200 Nicotine dependence, unspecified, uncomplicated; I10 Essential (primary) hypertension; F31.9 Bipolar disorder, unspecified; E86.0 Dehydration; R01.1 Cardiac murmur, unspecified; Z79.899 Other long term (current) drug therapy
CPT/HCPCS: 71045; 76775; 80048; 80053; 80307; 81001; 82043; 82550; 82552; 82570; 83605; 83735; 84300; 85025; 86403; 87040; 87086; 87205; 93005; 93308; 96360; J2060; J7030

== ENCOUNTER 2018-02-23 11:43 | Emergency (ER) | payer SELFPAY ==
[~2018-02-23] VITALS: Ht 175.3 cm; Wt 65.0 kg
[~2018-02-23 11:43] MED LIST changes: +ACYC200C66 PO; +LORA-650 PO
[2018-02-23 11:55] VITALS: BP 183/81; PULSE 94; RESP 18; TEMP 97.9; O2SAT 100
--- NOTE | 2018-02-23 14:27 | PD ---
HPI Chief Complaint: Medical Clearance Time Seen by Provider: 13:25 Travel History International Travel<30 days: No Contact w/Intl Traveler<30days: No Traveled to known affect area: No History of Present Illness HPI 27-year-old male presents to the emergency department with complaint of not feeling right since he stopped using IV drugs, taking his psychotropic, and taking Subutex 10 days ago. Reports last injecting methamphetamines and taking mildly about 10 days ago. Says he thinks he is withdrawing. He is complaining of decreased urination and last urinated last night. Says he has history of something wrong with his kidney when he was seen here a few weeks ago. Reports decreased appetite and says he can eat or drink. Denies suicidal or homicidal ideations. Denies nausea, vomiting, diarrhea. Denies fevers. Reports headache for the past 2 days that is left-sided and frontal. Denies chest pain , shortness of breath. Reports left-sided abdominal/flank pain that may be a little worse, but had that pain when he was seen here last also. He is also complaining of low back pain and leg pain. His lower back has hurt for 2 days. He denies uncal paresis, incontinence, saddle anesthesias. Denies difficulty ambulating. Denies paresthesias, loss of sensation, decreased range of motion, decreased strength to bilateral lower extremities. Has tried taking ibuprofen and Tylenol for symptom management without relief. Pain is constant and relieved. No known relieving or aggravating factors. Rates headache 8/10. Body and low back pain is 5/10. Headache is throbbing. Body and low back is aching. No primary care provider. History of hypertension and has not taken medications for that also. No known allergies. Has no other medical complaints. No other modifying factors or associated signs and symptoms. PFSH Past Medical History Cardiovascular Problems: Yes (HTN) Diminished Hearing: No Hypertension: Yes Immunizations Current: Yes Social History Alcohol Use: Yes Tobacco Use: Yes Allergies-Medications (Allergen,Severity, Reaction): Coded Allergies: No Known Allergies (Verified Adverse Reaction, Unknown, 12/28/17) Reported Meds & Prescriptions Reported Meds & Active Scripts Active Zofran (Ondansetron HCl) 4 Mg Tab 4 Mg PO Q6HR PRN Reported Acyclovir 200 Mg Cap 200 Mg PO 5 TIMES A DAY Allergy Relief (Loratadine) 10 Mg Tab 10 Mg PO DAILY Chlorothiazide 250 Mg Tab 250 Mg PO BID Buprenorphine (Buprenorphine HCl) 8 Mg Subl 8 Mg SL QID Gabapentin 300 Mg Cap 300 Mg PO QID Wellbutrin Xl 24 HR (Bupropion HCl) 150 Mg Tab 150 Mg PO DAILY Lisinopril 20 Mg Tab 20 Mg PO DAILY Review of Systems Except as stated in HPI: all other systems reviewed are Neg Physical Exam Narrative GENERAL: Well-nourished, well-developed male patient, in no acute distress; afebrile, nontoxic-appearing SKIN: Warm and dry. HEAD: Atraumatic. Normocephalic. EYES: Pupils equal and round. No scleral icterus. No injection or drainage. ENT: Mucosa pink and moist. Airway patent. NECK: Trachea midline. CARDIOVASCULAR: Regular rate and rhythm. No murmur appreciated. RESPIRATORY: No accessory muscle use. Breath sounds clear and equal bilaterally. No retractions or tachypnea. GASTROINTESTINAL: Abdomen soft, tenderness on palpation to the left flank/ abdominal area, nondistended. Positive bowel sounds. No hepato-splenomegaly, or palpable masses. No guarding. MUSCULOSKELETAL: Bilateral lower extremities supple and non-tense with 2+ pedal pulses and sensory intact; with full range of motion and 5/5 strength. 2 + DTRs bilaterally. Active dorsiflexion and extension of bilateral feet. Bilateral straight leg raise is negative for low back pain. Ambulatory in room with normal gait. Sitting up in bed at 90. No obvious deformities. No clubbing. No cyanosis. No edema. BACK: No midline point tenderness on palpation of the lumbar, thoracic spine. Tenderness on palpation of bilateral lumbar paraspinal and iliosacral area. No obvious deformities. NEUROLOGICAL: Awake and alert. Oriented 3. No obvious cranial nerve deficits. Motor grossly within normal limits. Normal speech. Moves all extremities. 5/5 strength to all extremities. Sensory intact. PSYCHIATRIC: Appropriate mood and affect; insight and judgment normal. Data Data Last Documented VS Vital Signs Date Time Temp Pulse Resp B/P (MAP) Pulse Ox O2 Delivery O2 Flow Rate FiO2 02/23/18 11:55 97.9 94 18 183/81 (115) 100 MDM Medical Decision Making Medical Screen Exam Complete: Yes Emergency Medical Condition: Yes Medical Record Reviewed: Yes Differential Diagnosis Polysubstance abuse, opioid withdrawal, rhabdomyolysis, acute renal failure, dysuria, dehydration Narrative Course 27-year-old male with history of IV drug use that has not used 10 days presents with multiple complaints. I discussed the patient with my attending physician, Dr. Samano, and she will assume patient care at this time. See her note for final patient disposition. Marcella Lopez February 23, 2018 14:27
[2018-02-23] MEDS ORDERED: SODIUM CHLOR 0.9% 1000 ML INJ 1,000 ML IV ONE (16:00)
[2018-02-23] MEDS ORDERED: SODIUM CHLORIDE 0.9% FLUSH 10 ML FLUSH IVF PRN (16:00)
--- NOTE | 2018-02-23 16:09 | PD ---
Physical Exam Date Seen by Provider: February 23, 2018 Narrative This patient was initially seen by my JOSSIE, Marcella Lopez NP. He presents complaining with about a 2 day history of feeling generally poorly. He has a history of drug abuse. He has been incarcerated from about 10 days ago until 2 days ago. He reports decreased oral intake, decreased urinary output and headache since being [facility] from [facility]. He reports that he is concerned because he has recently had a "scare with his heart and kidneys." Onset: 2 days Progression: Constant Context: Previous acute renal failure, history of drug abuse Modifying factors: None known Associated symptoms: Decreased oral intake, decreased urinary output and headache/myalgias Data Data Last Documented VS Vital Signs Date Time Temp Pulse Resp B/P (MAP) Pulse Ox O2 Delivery O2 Flow Rate FiO2 02/23/18 11:55 97.9 94 18 183/81 (115) 100 Orders Orders Basic Metabolic Panel (Bmp) (02/23/18 15:53) Ckmb (Isoenzyme) Profile (02/23/18 15:53) Complete Blood Count With Diff (02/23/18 15:53) Magnesium (Mg) (02/23/18 15:53) Iv Access Insert/Monitor (02/23/18 15:53) Sodium Chloride 0.9% Flush (Ns Flush) (02/23/18 16:00) Sodium Chlor 0.9% 1000 Ml Inj (Ns 1000 M (02/23/18 16:00) Urinalysis - C+S If Indicated (02/23/18 15:53) Drug Screen, Random Urine (02/23/18 15:53) Urine Culture (02/23/18 16:07) Labs Laboratory Tests Test 02/23/18 16:07 White Blood Count 11.7 TH/MM3 Red Blood Count 4.77 MIL/MM3 Hemoglobin 14.5 GM/DL Hematocrit 43.5 % Mean Corpuscular Volume 91.1 FL Mean Corpuscular Hemoglobin 30.5 PG Mean Corpuscular Hemoglobin Concent 33.5 % Red Cell Distribution Width 14.7 % Platelet Count 289 TH/MM3 Mean Platelet Volume 9.3 FL Neutrophils (%) (Auto) 67.2 % Lymphocytes (%) (Auto) 27.2 % Monocytes (%) (Auto) 4.9 % Eosinophils (%) (Auto) 0.5 % Basophils (%) (Auto) 0.2 % Neutrophils # (Auto) 7.8 TH/MM3 Lymphocytes # (Auto) 3.2 TH/MM3 Monocytes # (Auto) 0.6 TH/MM3 Eosinophils # (Auto) 0.1 TH/MM3 Basophils # (Auto) 0.0 TH/MM3 CBC Comment DIFF FINAL Differential Comment Urine Color LIGHT-YELLOW Urine Turbidity CLEAR Urine pH 8.0 Urine Specific Noti 1.013 Urine Protein NEG mg/dL Urine Glucose (UA) NEG mg/dL Urine Ketones NEG mg/dL Urine Occult Blood NEG Urine Nitrite NEG Urine Bilirubin NEG Urine Urobilinogen LESS THAN 2.0 MG/DL Urine Leukocyte Esterase SMALL Urine WBC 9 /hpf Microscopic Urinalysis Comment CULTURE INDICATED Blood Urea Nitrogen 12 MG/DL Creatinine 0.93 MG/DL Random Glucose 94 MG/DL Calcium Level 9.2 MG/DL Magnesium Level 2.5 MG/DL Sodium Level 142 MEQ/L Potassium Level 4.3 MEQ/L Chloride Level 108 MEQ/L Carbon Dioxide Level 26.0 MEQ/L Anion Gap 8 MEQ/L Estimat Glomerular Filtration Rate 97 ML/MIN Total Creatine Kinase 43 U/L Urine Opiates Screen NEG Urine Barbiturates Screen NEG Urine Amphetamines Screen NEG Urine Benzodiazepines Screen NEG Urine Cocaine Screen NEG Urine Cannabinoids Screen NEG MDM Supervised Visit with JOSSIE: Yes Narrative Course This patient looks well clinically. He is up ambulatory about the department. I, Dr. Samano, have reviewed the advance practice practitioner's documentation and am in agreement, met with the patient face to face, made the diagnosis, and the medical decision making was done by me. *My assessment and Findings: CBC & BMP Diagram 02/23/18 16:07 Calcium Level 9.2, Magnesium Level 2.5, CK 43 Tox screen is negative. UA is negative. The history, exam, diagnostic testing, and current condition do not suggest any significant pathology to warrant further testing, continued ED treatment, admission, or surgical evaluation at this point. No EMC was found. The patient 's condition is stable and appropriate for discharge. Diagnosis Primary Impression: Decreased urinary output Additional Instruction: Drink plenty of fluids Disposition: 01 DISCHARGE HOME Condition: Stable Delia Samano MD February 23, 2018 16:09
[2018-02-23 16:36] LABS: AUTOMATED NEUTROPHIL # 7.8 TH/MM3 (1.8-7.7); BASOPHIL % 0.2 % (0.0-2.0); EOSINOPHIL # 0.1 TH/MM3 (0-0.4); EOSINOPHIL % 0.5 % (0.0-4.0); HEMATOCRIT 43.5 % (39.0-51.0); HEMOGLOBIN 14.5 GM/DL (13.0-17.0); LYMPH % 27.2 % (9.0-44.0); LYMPHOCYTE # 3.2 TH/MM3 (1.0-4.8); MEAN CELL VOLUME 91.1 FL (80.0-100.0); MEAN CORPUSCULAR HEMOGLOBIN 30.5 PG (27.0-34.0); MEAN CORPUSCULAR HGB CONC 33.5 % (32.0-36.0); MEAN PLATELET VOLUME 9.3 FL (7.0-11.0); MONO % 4.9 % (0.0-8.0); MONOCYTE # 0.6 TH/MM3 (0-0.9); NEUT % 67.2 % (16.0-70.0); PLATELET COUNT 289 TH/MM3 (150-450); RED BLOOD COUNT 4.77 MIL/MM3 (4.50-5.90); RED CELL DISTRIBUTION WIDTH 14.7 % (11.6-17.2); WHITE BLOOD COUNT 11.7 TH/MM3 (4.0-11.0)
[2018-02-23 16:52] LABS: BILIRUBIN, URINE NEG (NEG); BLOOD, URINE NEG (NEG); GLUCOSE,URINE NEG (NEG); KETONE, URINE NEG (NEG); NITRITE,URINE NEG (NEG); URINE COLOR LIGHT-YELLOW (YELLW/STRAW); URINE LEUKOCYTE ESTERASE SMALL (NEG)
[2018-02-23 16:54] LABS: CALCIUM 9.2 MG/DL (8.5-10.1); CREATININE 0.93 MG/DL (0.60-1.30); MAGNESIUM 2.5 MG/DL (1.5-2.5)
== END 2018-02-23 18:23 | disposition home or self-care (01) ==
LOC: NEPD 11:43
DX: R34 Anuria and oliguria (principal); R51 Headache; I10 Essential (primary) hypertension; M54.5 Low back pain; Z72.0 Tobacco use; Z79.899 Other long term (current) drug therapy
CPT/HCPCS: 80048; 80307; 81001; 82550; 83735; 85025; 87086; 96360; 99284; J7030